=== PATIENT | female | born 1945 | race Caucasian/White ===

== ENCOUNTER 2021-03-28 18:59 | Emergency (ER) | payer MEDICARE, BC, SELFPAY ==
--- NOTE | ~2021-03-28 | XR_ITS ---
EXAMINATION: XR humerus RT, XR ribs RT 2V DATE: 03/28/2021 19:28 INDICATION: Right rib and upper arm pain post fall TECHNIQUE: 1. 3 views of the right ribs were obtained. 2. AP and lateral views of the right humerus were obtained. COMPARISON: None FINDINGS: Right ribs: No rib fractures identified. The right lung and visualized portions of the left lung are clear. No pu lmonary edema, pleural effusion or pneumothorax. Visualized portions of the heart and mediastinum are normal. Cholecystectomy clips in right upper quadrant. Mild lumbar levoscoliosis with severe spondyl osis. Right upper arm: Anterior dislocation of the right humeral head at the glenohumeral joint. No evident fracture. Mild a cromioclavicular osteoarthritis. Subacromial spurs. No other fractures identified. IMPRESSION: 1. Right glenohumeral anterior dislocation without evident fracture. 2. No right rib fractures or acute cardiopulmonary disease. Reviewed, dictated and finalized at location A. INERY TEACHER IMPRESSION: 1. Right glenohumeral anterior dislocation without evident fracture. 2. No right rib fractures or acute cardiopulmonary disease.
--- NOTE | ~2021-03-28 | XR_ITS ---
EXAMINATION: XR shoulder RT min 2V DATE: 03/28/2021 20:27 INDICATION: Postreduction right glenohumeral dislocation TECHNIQUE: AP and transscapular Y views of the right shoulder were obtained. COMPARISON: 03/28/2021 at 7:23 PM FINDINGS: Successful reduction of the previously dislocated right glenohumeral joint is now in normal alignment . No fractures identified. Mild right acromioclavicular and glenohumeral osteoarthritis. Visualized p ortions of the right lung are clear. Soft tissues are unremarkable. IMPRESSION: Anatomic alignment post successful reduction of dislocated right glenohumeral joint. No evident fract ure. Reviewed, dictated and finalized at location A. N FARMER IMPRESSION: Anatomic alignment post successful reduction of dislocated right glenohumeral j oint. No evident fracture.
[2021-03-28 19:07] VITALS: BP 151/69; PULSE 56; RESP 17; TEMP 36.3; O2SAT 100
--- NOTE | 2021-03-28 20:17 | ED.UPPEXIN ---
HPI - Extremity Injury (Upper) General Chief Complaint: Extremity Injury, Upper Stated Complaint: fall- right arm and shoulder pain Time Seen by Provider: 03/28/21 20:09 Source: patient History of Present Illness HPI narrative: Patient presents with right shoulder pain. Patient reports she was at home tripped over a heavy object in her house and fell on extended right arm. She had immediate right shoulder pain she was concerned for her shoulder injury so she came to the ER for evaluation. She denies use of blood thinners she denied striking her head she denies any loss of consciousness she denies any other focal areas of pain. Patient reports when she got to her ER room her shoulder felt much improved. She reports when she is in the waiting she been unable to move her shoulder but now is able to move her shoulder freely without pain. She denies any focal numbness or weakness she denies any headaches. She denies any prodrome prior to the fall Related Data Home Medications Medication Instructions Recorded Confirmed acetaminophen 650 mg 650 mg PO Q12H 03/17/21 03/17/21 tablet,extended release ascorbic acid (vitamin C) 1,000 mg 1 g PO DAILY 03/17/21 03/17/21 tablet cholecalciferol (vitamin D3) 50 50 mcg PO DAILY 03/17/21 03/17/21 mcg (2,000 unit) capsule cranberry 400 mg capsule 400 mg PO DAILY 03/17/21 03/17/21 lactobacillus combination no.9 4 4,000 mmu cells PO DAILY 03/17/21 03/17/21 billion cell capsule losartan 100 1 tablet PO DAILY 03/17/21 03/17/21 mg-hydrochlorothiazide 25 mg tablet metoprolol succinate 100 mg 100 mg PO DAILY 03/17/21 03/17/21 tablet,extended release 24 hr multivitamin 1 tablet PO DAILY 03/17/21 03/17/21 omeprazole 20 mg capsule,delayed 20 mg PO DAILY 03/17/21 03/17/21 release Allergies Allergy/AdvReac Type Severity Reaction Status Date / Time No Known Allergies Allergy Verified 03/28/21 20:33 Review of Systems Review of Systems: CONSTITUTIONAL: Denies fever, chills, or sweats. EYES: Denies visual changes, redness, or discharge. ENT: Denies rhinorrhea, congestion, sore throat, or otalgia. CARDIOVASCULAR: Denies chest pain, palpitations, or edema. RESPIRATORY: Denies cough or dyspnea. GASTROINTESTINAL: Denies abdominal pain, nausea, vomiting, or diarrhea. GENITOURINARY: Denies dysuria or hematuria. SKIN: Denies rash or itching. MUSCULOSKELETAL: Denies back pain, or myalgia. NEUROLOGIC: Denies headache, numbness, dizziness, or weakness. PSYCHIATRIC: Denies anxiety or depression. All systems reviewed & are unremarkable except as noted in HPI and below PMFSH Past Medical History Medical History History of stress test Hypertension Surgical History Surgical History History of cholecystectomy (~1988) History of surgery (~2004) Fibroid Procedure History of tubal ligation (~1969) Family History Family History Mother Arthritis Heart disease Open Heart Surgery @ 88y/p Father Hypertension Social History Social History Smoking status: Never smoker Alcohol intake: current Exam Narrative: GENERAL: Well-appearing, well-nourished, and in no acute distress. HEAD: Normocephalic, atraumatic. EYES: PERRLA and EOMI. ENT: Nares clear, no rhinorrhea or epistaxis. Mucous membranes moist. NECK: Supple. No masses. No JVD EXTREMITIES: Normal range of motion. No shoulder deformity no focal bony tenderness SKIN: Warm, dry, no rash. NEURO: No focal deficits. Alert and oriented x3. PSYCH: Normal mood and affect. Course Vital Signs Vital signs: Vital Signs Temperature 36.3 C L 03/28/21 19:07 Pulse Rate 56 L 03/28/21 19:07 Respiratory Rate 17 03/28/21 19:07 Blood Pressure 151/69 H 03/28/21 19:07 Pulse Oximetry 100 03/28/21 19:07
--- NOTE | 2021-03-28 20:24 | PC.NURSE ---
Pt reports fall and stretched out right arm to land. came to ED c/o pain to right shoulder and inability to move it. Pt inadvertently reduced own shoulder prior to ED room assignment. No current s/s of distress. family at bedside. ED MD in room. sling ordered.
[2021-03-28 20:37] VITALS: BP 150/62; PULSE 60; RESP 18; O2SAT 97
== END 2021-03-28 20:58 | disposition home or self-care (01) ==
LOC: ANHED 20:46
PROVIDERS: Emergency Provider Emergency Medicine; PCP Nurse Practitioner Family
DX: S43.014A Anterior dislocation of right humerus, initial encounter (principal); I10 Essential (primary) hypertension; W18.09XA Striking against other object with subsequent fall, initial encounter
CPT/HCPCS: 71100; 73030; 73060; 99284; A4565

== ENCOUNTER 2021-03-29 09:23 | Emergency (ER) | payer MEDICARE, BC, SELFPAY ==
--- NOTE | ~2021-03-29 | XR_ITS ---
EXAMINATION: XR shoulder RT min 2V DATE: 03/29/2021 09:58 INDICATION: Right shoulder injury. TECHNIQUE: 3 views of right shoulder were obtained. COMPARISON: Right shoulder radiographs 03/28/2021 FINDINGS: There is anterior dislocation of humeral head with respect to glenoid. No acute fracture. A gain seen are loose bodies in glenohumeral joint. There are osteophytes of the humeral head and gleno id. There is moderate acromioclavicular joint osteoarthritis. IMPRESSION: 1. Recurrent anterior right shoulder dislocation. Reviewed, dictated and finalized at location B. HANDISE WORKER
--- NOTE | ~2021-03-29 | XR_ITS ---
EXAMINATION: XR shoulder RT min 2V DATE: 03/29/2021 10:34 INDICATION: Right shoulder dislocation status post reduction. TECHNIQUE: 4 views of right shoulder were obtained. COMPARISON: Right shoulder radiographs at 9:35 AM FINDINGS: Bone alignment is normal. No fracture. There is mild osteoarthritis of glenohumeral joint a nd moderate osteoarthritis of acromioclavicular joint. IMPRESSION: 1. Normal alignment at glenohumeral joint. 2. Polyarticular osteoarthritis. Reviewed, dictated and finalized at location B. R INSPECTOR
[2021-03-29 09:27] VITALS: BP 169/79; PULSE 60; RESP 16; TEMP 36.8; O2SAT 100
--- NOTE | 2021-03-29 10:44 | ED.GENADULT ---
HPI - General Adult General Chief complaint: Extremity Injury, Upper Stated complaint: right shoulder injury Time Seen by Provider: 03/29/21 09:32 Source: patient Mode of arrival: ambulatory Limitations: no limitations History of Present Illness HPI narrative: Patient 75-year-old female presenting with chief complaint of return of pain to the right shoulder that began while she was sleeping. Patient presented to the emergency department yesterday after having a mechanical fall which caused a dislocation to her right shoulder. While patient was waiting her shoulder reduced prior to being seen. She was placed in a sling and discharged home. Patient reports last night while she was sleeping she awoke with the pain in the shoulder that has continued. She reports decreased range of motion. Patient denies any head impact, loss of consciousness, neurologic deficit,, nausea, vomiting, changes in vision or hearing or any other symptoms.. Related Data Home Medications Medication Instructions Recorded Confirmed acetaminophen 650 mg 650 mg PO Q12H 03/17/21 03/17/21 tablet,extended release ascorbic acid (vitamin C) 1,000 mg 1 g PO DAILY 03/17/21 03/17/21 tablet cholecalciferol (vitamin D3) 50 50 mcg PO DAILY 03/17/21 03/17/21 mcg (2,000 unit) capsule cranberry 400 mg capsule 400 mg PO DAILY 03/17/21 03/17/21 lactobacillus combination no.9 4 4,000 mmu cells PO DAILY 03/17/21 03/17/21 billion cell capsule losartan 100 1 tablet PO DAILY 03/17/21 03/17/21 mg-hydrochlorothiazide 25 mg tablet metoprolol succinate 100 mg 100 mg PO DAILY 03/17/21 03/17/21 tablet,extended release 24 hr multivitamin 1 tablet PO DAILY 03/17/21 03/17/21 omeprazole 20 mg capsule,delayed 20 mg PO DAILY 03/17/21 03/17/21 release Allergies Allergy/AdvReac Type Severity Reaction Status Date / Time No Known Allergies Allergy Verified 03/29/21 09:33 Review of Systems Review of Systems: CONSTITUTIONAL: Denies fever, chills, or sweats. EYES: Denies visual changes, redness, or discharge. ENT: Denies rhinorrhea, congestion, sore throat, or otalgia. CARDIOVASCULAR: Denies chest pain, palpitations, or edema. RESPIRATORY: Denies cough or dyspnea. GASTROINTESTINAL: Denies abdominal pain, nausea, vomiting, or diarrhea. GENITOURINARY: Denies dysuria or hematuria. SKIN: Denies rash or itching. MUSCULOSKELETAL: Reports right shoulder pain denies back pain, joint pain, or myalgia. NEUROLOGIC: Denies headache, numbness, dizziness, or weakness. PSYCHIATRIC: Denies anxiety or depression. PMFSH Past Medical History Medical History History of stress test Hypertension Surgical History Surgical History History of cholecystectomy (~1988) History of surgery (~2004) Fibroid Procedure History of tubal ligation (~1969) Family History Family History Mother Arthritis Heart disease Open Heart Surgery @ 88y/p Father Hypertension Social History Social History Smoking status: Never smoker Alcohol intake: current Exam Narrative: GENERAL: Well-appearing, well-nourished, elderly. HEAD: Normocephalic, atraumatic. EYES: PERRLA and EOMI. CHEST: Clear to auscultation. No respiratory distress. No wheezes rales or rhonchi EXTREMITIES: Deformity noted to right shoulder. Decreased range of motion. Sensation and cap refill intact distally. SKIN: Warm, dry, no rash. NEURO: No focal deficits. Alert and oriented x3. PSYCH: Normal mood and affect. Course Vital Signs Vital signs: Vital Signs Temperature 98.3 F 03/29/21 09:27 Pulse Rate 60 03/29/21 09:27 Respiratory Rate 16 03/29/21 09:27 Blood Pressure 169/79 H 03/29/21 09:27 Pulse Oximetry 100 03/29/21 09:27 Temperature 98.3 F 03/29/21 09:27 Pulse Rate 60
== END 2021-03-29 11:05 | disposition home or self-care (01) ==
PROVIDERS: Emergency Provider Emergency Medicine; PCP Nurse Practitioner Family
DX: S43.004A Unspecified dislocation of right shoulder joint, initial encounter (principal); I10 Essential (primary) hypertension; W19.XXXA Unspecified fall, initial encounter
CPT/HCPCS: 23650; 73030; 99285

== ENCOUNTER 2021-05-19 08:33 | Outpatient (CLI) | payer MEDICARE, BC, SELFPAY ==
--- NOTE | 2021-05-19 | ECG_ITS ---
Measurements Intervals [place] Rate: 50 P: 46 CT: 212 QRS: -19 QRSD: 104 T: -4 QT: 462 QTc: 423 Interpretive Statements SINUS BRADYCARDIA WITH FIRST DEGREE AV BLOCK DELAYED PRECORDIAL R/S TRANSITION BORDERLINE T WAVE ABNORMALITY- INFERIOR LEADS ABNORMAL ECG Electronically Signed On 05-19-2021 9:55:58 APARTMENT MAINTENANCE WORKER by Benny Ureña D.O.
[2021-05-19 10:06] LABS: Albumin Level 4.2 g/dL (3.5-5.1); Estimated Glomerular Filt Rate 54; Glucose 103 mg/dL (65-110)
[2021-05-19 10:24] LABS: Urine Cotinine NEGATIVE
== END 2021-05-19 08:34 | disposition home or self-care (01) ==
LOC: ANHLAB 08:43
PROVIDERS: PCP Nurse Practitioner Family; Visit Provider Orthopaedic Surgery
DX: Z01.818 Encounter for other preprocedural examination (principal); M17.12 Unilateral primary osteoarthritis, left knee; E78.5 Hyperlipidemia, unspecified; R94.31 Abnormal electrocardiogram [ECG] [EKG]
CPT/HCPCS: 80307; 82040; 82565; 82947; 85014; 85018; 93005

== ENCOUNTER 2021-07-19 07:45 | Outpatient (CLI) | payer MEDICARE, BC, SELFPAY ==
[2021-07-19 09:28] LABS: Basophils Percent Auto 0.3 % (0.2-1.2); Eosinophils Absolute Auto 0.1 K/mm3 (0-0.3); Eosinophils Percent Auto 0.8 % (0-4.4); Hematocrit 40.5 % (37.0-47.0); Hemoglobin 13.8 g/dL (12.0-15.0); Immature Granulocyte Absolute 0.04 K/mm3 (0.00-0.031); Immature Granulocyte Percent A 0.5 % (0-0.5); Lymphocytes Absolute Auto 2.31 K/mm3 (0.9-3.2); Lymphocytes Percent Auto 26.9 % (18.3-44.2); Mean Corpuscular HGB Conc 34.1 g/dl (32-36); Mean Corpuscular Hemoglobin 31.6 pg (26-34); Mean Corpuscular Volume 92.7 fl (80-100); Mean Platelet Volume 9.3 fl (7.4-10.4); Monocytes Absolute Auto 0.6 K/mm3 (0.1-0.6); Neutrophils Absolute Auto 5.5 K/mm3 (1.3-6.7); Neutrophils Percent Auto 64.5 % (45.5-73.1); Platelet Count Result 314 k/mm3 (150-375); Red Blood Count 4.37 M/mm3 (4.2-5.4); Red Cell Distribution Width 12.7 % (11.5-14.5); White Blood Count 8.6 K/mm3 (4.5-10.0)
[2021-07-19 09:41] LABS: Hemoglobin A1C 5.2 % (<5.7)
[2021-07-19 09:42] LABS: Albumin Level 4.5 g/dL (3.5-5.1); Urine Cotinine NEGATIVE
[2021-07-19 09:44] LABS: Anion Gap 7 mmol/L (8-16); Blood Urea Nitrogen 18 mg/dL (7-17); Calcium 9.4 mg/dL (8.4-10.2); Carbon Dioxide 31 mmol/L (22-30); Chloride 100 mmol/L (98-107); Estimated Glomerular Filt Rate > 60; Glucose 106 mg/dL (65-110); Potassium 3.9 mmol/L (3.4-5.0); Sodium 138 mmol/L (137-145)
== END 2021-07-19 07:46 | disposition home or self-care (01) ==
LOC: ANHSURGERY 07:50
PROVIDERS: Anesthesiology; PCP Nurse Practitioner Family; Visit Provider Orthopaedic Surgery
DX: M17.12 Unilateral primary osteoarthritis, left knee (principal); I10 Essential (primary) hypertension; Z01.818 Encounter for other preprocedural examination
CPT/HCPCS: 36415; 80048; 80307; 82040; 83036; 85025; 87081

== ENCOUNTER 2021-08-19 00:58 | Day surgery (SDC) | payer MEDICARE, BC, SELFPAY ==
--- NOTE | 2021-07-19 08:29 | PC.NURSE ---
Report to the Outpatient Waiting Room, entrance under the green pavilion located off [facility], at time __0600 on date _08/19/21 . OR Time: . - You and your visitor will be asked a series of questions to screen for COVID 19 for your protection. - A mask is required within the hospital. Preoperative COVID Testing Requirements: No COVID Test needed if: (proof is required; if not received patient will have Rapid Test prior to entry) - Patient has received COVID Vaccine at least 14 days prior to procedure date or - Patient has positive COVID test result within last 90 days of surgery date. COVID Test needed if above criteria is not met If not COVID vaccinated a COVID test must be conducted within 72 hours of surgery and patient is asked to isolate self from time of testing until procedure. You will go to the [facility] for your COVID testing. The [facility] site is located at the corner of [address] [facility]. You will only be called if COVID results are positive and your surgeon may reschedule your elective surgery date. Patients may have clear liquids (water, carbonated beverages, clear teas, apple juice) until 3 hours prior to surgery with a maximum of 20 ounces. - No food from midnight until time of surgery - Infants may have breast milk until 4 hours before surgery, infant formula 6 hours prior to surgery. - Children will be allowed to drink immediately following surgery. If applicable, please bring a bottle or sippy cup to assist with drinking. Juice, water, soda, and popsicles are readily available. For infants on formula, please bring formula the day of surgery. Pacifiers are allowed. Take the following medications with a SIP of water the morning of surgery: ____METOPROLOL Medications to discontinue per physician __ALL VITAMINS AND SUPPLEMENTS 3 DAYS PRE OP Date to take last dose___08/15/21 TOTAL JOINT CLASS 07/21/21 Please no make-up, nail arabic, hairspray, perfume, deodorant, or body powder the day of surgery. No jewelry (including any body piercings) or valuables the day of surgery, leave them at home. Please take a shower or bath the night before, or the morning of, surgery with an antibacterial soap. Wear comfortable, loose fitting clothing. Children are encouraged to wear pajamas. - Jewelry must be removed prior to entering the operating room. Rings and piercings that are not removed may be cut off. - The hospital will not accept responsibility for valuables. - Please leave all valuables, including medications, at home the day of surgery. If you are going home after surgery, a licensed cpr ambulance driver must drive you home. - NO public transportation without another adult. - We recommend that an adult stay with you for 24 hours following discharge. - We also recommend that you do not drive, make important decision, drink alcoholic beverages, or take any drugs that were not prescribed by your health care provider for at least 24 hours after your discharge time. One visitor will be allowed to accompany the patient into the hospital. Patients visitor will be instructed to remain with patient at all times or leave the building. We will allow the visitor to come back to the postoperative area when patient is ready. Follow any additional instructions given to you from your surgeon. VERBAL AND WRITTEN instructions given to and asked if any additional questions and then verbalized understanding. Patient advised to call surgeon office or pre surgery nurse liaison [phone] if any additional questions.
[2021-07-19 08:48] VITALS: BP 138/80; PULSE 60; RESP 18; TEMP 37.1; O2SAT 99; BMI 33.6
[2021-08-19] VITALS (16 sets, daily range): BP systolic 103–134; BP diastolic 48–71; PULSE 53–69; RESP 12–20; TEMP 36.2–36.8; O2SAT 92–100
--- NOTE | ~2021-08-19 | XR_ITS ---
EXAMINATION: XR knee LT 2V DATE: 08/19/2021 10:07 INDICATION: Total left knee arthroplasty. Postop. TECHNIQUE: 2 views of left knee were obtained. COMPARISON: Left knee radiographs 03/17/2021 FINDINGS: There is a total left knee arthroplasty without patellar resurfacing in near-anatomic align ment. There are osteophytes of the patella. No fracture. There is a small knee joint effusion. IMPRESSION: 1. Total left knee arthroplasty in near-anatomic alignment. Reviewed, dictated and finalized at location A.
[2021-08-19] MEDS: ACETAMINOPHEN 500 MG TABLET 1000 MG PO (06:59)
[2021-08-19] MEDS: TRANEXAMIC ACID 1,000MG/ISO100 1,000 MG/100 ML BAG 200 MG IVPB (07:00)
--- NOTE | 2021-08-19 07:03 | WPDANESEPPF ---
Anes - Initial Pre Proc Eval Procedure: Operation Date: 08/19/21 07:30 Proposed Procedures p Left Total Knee Arthroplasty - Nando Grant MD Date/Time: 08/19/21 07:03 Surgeon: Nando Grant MD Pre Op Diagnosis: primary OA left knee Patient Data Age: 76 Gender: F Height: 1.47 m Weight: 73 kg Last Vital Signs Temp 37.1 C 07/19/21 08:48 Pulse 60 07/19/21 08:48 Resp 18 07/19/21 08:48 BP 138/80 07/19/21 08:48 Pulse Ox 99 07/19/21 08:48 Allergies Allergy/AdvReac Type Severity Reaction Status Date / Time No Known Allergies Allergy Verified 08/19/21 06:21 Home Medications Medication Instructions Recorded Confirmed Type acetaminophen 650 mg 1,300 mg PO Q12H 03/17/21 08/19/21 History tablet,extended release cholecalciferol (vitamin D3) 50 50 mcg PO DAILY 03/17/21 08/19/21 History mcg (2,000 unit) capsule cranberry 400 mg capsule 400 mg PO DAILY 03/17/21 08/19/21 History lactobacillus combination no.9 4 4,000 mmu cells PO DAILY 03/17/21 08/19/21 History billion cell capsule losartan 100 1 tablet PO DAILY 03/17/21 08/19/21 History mg-hydrochlorothiazide 25 mg tablet metoprolol succinate 100 mg 100 mg PO DAILY 03/17/21 08/19/21 History tablet,extended release 24 hr multivitamin 1 tablet PO DAILY 03/17/21 08/19/21 History omeprazole 20 mg capsule,delayed 20 mg PO DAILY 03/17/21 08/19/21 History release calcium carbonate [Calcium 500] 1,000 mg PO DAILY 07/19/21 08/19/21 History Patient hx anesthesia problems: none Family hx anesthesia problems: post op nausea/vomiting Results Review: All pre-operative results and documents have been reviewed as part of the pre-operative evaluation. ON LICENSE OF [facility] Past Medical History Medical History Arthritis Constipation Depression Diarrhea History of stress test HLD (hyperlipidemia) Hypertension Wears glasses Surgical History Surgical History History of cholecystectomy (~1988) History of surgery (~2004) Fibroid Procedure History of tubal ligation (~1969) Family History Family History Mother Arthritis Heart disease Open Heart Surgery @ 88y/p Father Hypertension Other Depression Social History Social History Additional smoking assessment comments: DENIES ANY FORM OF TOBACCO USE Alcohol intake: current Alcohol use details: ONE DRINK PER MONTH Substance use: never Substance use type: does not use Living arrangements: alone Gender identity (if verbalized by the patient): Female Spiritual care concerns: No Anes - Eval Final PreProcedure Day of Procedure 08/19/21 07:03 Patient weight: obese Heart: regular rate and rhythm Lungs: clear to auscultation Airway: Mallampati scale class II Neurological: alert and oriented Last oral intake: >/= 8 hours ASA classification: III Emergent: no Anesthetic plan: proceed Anesthesia type and monitoring: general LMA and standard monitoring Results Review: All pre-operative results and documents have been reviewed as part of the pre-operative evaluation. Informed Consent: The patient's anesthetic plan and its attendant risks and benefits were discussed with the patient/family/POA. Questions were solicited and answers provided to the satisfaction of the patient/family/POA.
[2021-08-19] MEDS: LACTATED RINGERS 1,000 ML 30 ML IV CONT (07:11)
--- NOTE | 2021-08-19 07:23 | PM.HPGS ---
History of Present Illness History of Present Illness Consent: Risks, benefits, and alternatives have been discussed and questions answered. Patient agrees to proceed with procedure. Chief complaint: primary OA left knee Narrative: Mara Romero is a 76 year old female who presents with bilateral knee pain. Left is worse than right. Pain has been ongoing for many years. Worse with lifting and prolonged walking. Unable to walk more than 2 blocks without pain. She has to use Biofreeze on the knees in order to go shopping comfortably. Audible popping and crunching. Ambulates with a limp. Previous Treatment: Tylenol arthritis medication with minimal benefit. Review of systems: unremarkable Examination Alert and oriented. Obese. No distress. Significant limp. Varus deformity, mild left and 20 degrees left. Medial pseudolaxity. Trace effusion. Mild synovitis. Diffuse joint line tenderness. No instability. No skin rash or lesion. No varicosities. No edema. Anterior tibialis strength normal. Range of motion: 0-110 Left, 0-135 Right. Hip exam benign. Diagnostics Bilateral knee films demonstrate severe tricompartmental arthritis. Worse in the medial compartment with grade 4 changes. Impression: Severe varus arthritis bilateral knees. Left worse than right. The left has more significant medial tibial erosion. Severe tricompartmental changes and osteophytes. [facility] Past Medical History Medical History Arthritis Constipation Depression Diarrhea History of stress test HLD (hyperlipidemia) Hypertension Wears glasses Surgical History Surgical History History of cholecystectomy (~1988) History of surgery (~2004) Fibroid Procedure History of tubal ligation (~1969) Family History Family History Mother Arthritis Heart disease Open Heart Surgery @ 88y/p Father Hypertension Other Depression Social History Social History Additional smoking assessment comments: DENIES ANY FORM OF TOBACCO USE Alcohol intake: current Alcohol use details: ONE DRINK PER MONTH Substance use: never Substance use type: does not use Living arrangements: alone Gender identity (if verbalized by the patient): Female Spiritual care concerns: No Meds Home Medications and Allergies Home Medications Medication Instructions Recorded Confirmed Type acetaminophen 650 mg 1,300 mg PO Q12H 03/17/21 08/19/21 History tablet,extended release cholecalciferol (vitamin D3) 50 50 mcg PO DAILY 03/17/21 08/19/21 History mcg (2,000 unit) capsule cranberry 400 mg capsule 400 mg PO DAILY 03/17/21 08/19/21 History lactobacillus combination no.9 4 4,000 mmu cells PO DAILY 03/17/21 08/19/21 History billion cell capsule losartan 100 1 tablet PO DAILY 03/17/21 08/19/21 History mg-hydrochlorothiazide 25 mg tablet metoprolol succinate 100 mg 100 mg PO DAILY 03/17/21 08/19/21 History tablet,extended release 24 hr multivitamin 1 tablet PO DAILY 03/17/21 08/19/21 History omeprazole 20 mg capsule,delayed 20 mg PO DAILY 03/17/21 08/19/21 History release calcium carbonate [Calcium 500] 1,000 mg PO DAILY 07/19/21 08/19/21 History Allergies Allergy/AdvReac Type Severity Reaction Status Date / Time No Known Allergies Allergy Verified 08/19/21 06:21 Assessment and Plan Assessment and plan (1) Arthritis of left knee: Code(s): M17.12 - Unilateral primary osteoarthritis, left knee Status: Acute Assessment and Plan: End-stage arthritis left knee. Significant medial tibial erosion on the left with instability and pain limiting her quality of life. I recommend left total knee arthroplasty. Surgery more complex due to the bone loss and instability pattern. L
--- NOTE | 2021-08-19 07:26 | WPDHPUPDATE1 ---
History and Physical Update Update Date/Time: 08/19/21 07:26 History and Physical has been reviewed, including an updated exam of the patient. There are NO changes in the patient's condition. Risks, benefits, and alternatives have been discussed and questions answered. Patient agrees to proceed with procedure.
--- NOTE | 2021-08-19 07:27 | WPDANESPNB ---
Anes - Peripheral Nerve Block Date/Time: 08/19/21 07:27 I have discussed with the patient/family/POA the placement of a peripheral nerve block for post-operative pain management, including associated risks, benefits, complications, and side effects. Alternative methods of post-operative analgesia were detailed. Questions were solicited and answers provided to the satisfaction of the patient/family/POA. Time-Out: A pre-procedural Time-Out was completed immediately before starting the procedure and confirmed: Patient Identification, Site, Procedure, Patient Position and the Availability of Requisite Equipment. Clinical Indications: Acute post-operative pain management requested by the operative surgeon. Nerve Block Insertion Note Anes-nerve block: adductor canal left Patient position: supine Skin prep: chlorhexidine Needle: 22 gauge, stimulating, insulated echogenic needle. Needle length: 80 mm Technique: ultrasound Technique comment: mid 2mg [id number] Injectate: bupivacaine 0.5% with epi 5 mcg/ml (30ml) Observations: tolerated well Complications: none Procedure start time:: 719 Procedure end time:: 725
[2021-08-19] MEDS: ceFAZolin 2 GM/D5W 50 ML 2 GM/50 ML BAG IVPB ×2 (07:28→16:38)
[2021-08-19] MEDS: GENTAMICIN BONE CEMENT REFOBACIN 1 EACH TOPICAL (08:17)
--- NOTE | 2021-08-19 11:30 | ADMGEN ---
This patient, Mara Romero, was admitted to Medical Room 241-. Patient/family oriented to hospital policies and general routines including ID bracelet, bed and alarms, visiting hours, pain management, procedures, bathroom and other care routines, personal items, smoking policy, room service/diet, and visiting hours. Information on how to activate the Rapid Response Team has been discussed. Patient/Family are encouraged to report perceived risks to care and to ask questions if they do not understand what they are told or what they should do.
[2021-08-19] MEDS: SODIUM CHLORIDE 0.9% IV 1,000 ML 125 ML IV CONT (11:49)
[2021-08-19] MEDS: hydroCHLOROthiazide 25 MG TABLET PO (12:29)
[2021-08-19] MEDS: LOSARTAN POTASSIUM 100 MG TABLET PO (12:29)
[2021-08-19] MEDS: ONDANSETRON INJ 4 MG/2 ML VIAL IV PUSH (13:17)
--- NOTE | 2021-08-19 16:03 | P.OP_ITS ---
Procedure Note - Detailed Date of Procedure 08/19/21 Pre-op Diagnosis primary OA left knee Post-op Diagnosis Same Procedure Performed Total knee arthroplasty, left. Surgeon Nando Grant MD Heel Attacher Wood Viridiana Sloan PA-C Anesthesia General and Regional (Subsartorial block.) Findings Severe end-stage arthritis with medial tibial erosion. Significant medial release was required. Patella tracked well with minimal wear. Description of Procedure The patient was brought to the operating room. A general anesthetic was administered. The leg was prepped and draped in the usual sterile fashion. The limb was elevated and the tourniquet inflated to 300 mmHg. A longitudinal incision was created along the medial border of the patella and patellar tendon, and a minimally invasive optimized mid-vastus approach to the knee was performed. A large medial release was taken. The knee was then flexed. The osteophytes were carefully removed. The intramedullary guide was placed in the femoral canal. The distal femoral resection was then taken with the oscillating saw. The collateral ligaments were carefully protected. The tibia was carefully exposed. The jig was applied, and the proximal tibia was resected according to preoperative plan. The knee was balanced in extension. Appropriate releases were taken where needed. The anterior cruciate ligament and meniscal remnants were removed. The posterior cruciate ligament was sacrificed. The patella was trimmed of osteophytes with coagulation of the lateral retinaculum. The femur was sized and rotation assessed using a combination of gap balancing, posterior referencing, and the AP axis. The 4 in 1 cutting block and the box cut guide were used to finish the femoral cuts after equal gaps were assured. The osteophytes were carefully removed from the back of the knee. The knee was copiously irrigated with antibiotic solution periodically throughout the procedure. The meniscal remnants were removed. The spacer block was used to confirm equal flexion and extension gaps. Further releases were performed as needed. The tibia was sized and broached. The bony surfaces were prepared for cementing with pulsatile lavage. The real tibial and femoral components were victor manuel ented into position. Excess cement was carefully removed. Patellar tracking was carefully assessed. No additional releases were required. Dilute sterile Betadine soak performed for three minutes. Copious irrigation then performed. The wound was closed with #1 Vycril suture, #2 Quill suture, 0-Quill suture, and 2-0 Quill suture followed by Steri-Strips. A sterile bulky dressing was applied. Meticulous hemostasis was maintained throughout the procedure. The pain relieving mixture was injected into the periarticular tissues during the procedure. There were no complications. The patient was extubated and brought to the recovery room in stable condition after the application of sterile dressing with Go bandage. Implants [employer] triathlon knee system universal tibial cemented base plate posterior stabilized femoral component. Both size 4. 16 mm N2 VAC polyethylene. Estimated Blood Loss -100.0 Drains No Complications No immediate complications Condition Stable Disposition PACU
--- NOTE | 2021-08-19 16:09 | PM.DS ---
DS: Admitting Diagnosis Discharge Date 08/20/21 Admitting Diagnosis OA knee Left DS: Discharge Diagnosis Discharge Diagnosis (1) Status post total left knee replacement: Code(s): Z96.652 - Presence of left artificial knee joint Status: Acute Assessment and Plan: Postop day 1: Left total knee arthroplasty. Patient tolerated procedure well. No complications. Did have some nausea and vomiting witch improved with medications. Pain manageable with pain medication. No numbness or tingling. We had a lengthy discussion regarding postoperative wound care, limitations, expectations, and exercises. Patient shows good understanding. He has had initial physical therapy and is tolerating it well. DVT prophylaxis: 81 mg baby aspirin b.i.d. for 14 days. Pain medication: Percocet. Meloxicam. Prednisone. Patient has followup appointment with Dr. Grant in 3 weeks. DS: Summary Hospital Course Reason for hospitalization: Total knee arthroplasty Hospital Course: Patient tolerated procedure well. Has had initial PT/OT. Status at Discharge Functional status at discharge: uses cane/walker Overall status at discharge: patient is progressing back to baseline Time Spent with Patient Time attestation: Total time spent providing and/or coordinating discharge services: Exam Narrative: Overweight 76 y/o female. Resting comfortably in bed. Wearing compression socks bilaterally. Dressing intact with no drainage. Moderate swelling. Small area of ecchymosis. No erythema. No hematoma. Range of motion limited due to pain. Calf nontender. Neurologic status intact. No varicosities. Distal pulses palpable. DS: Data Data Completed and Pending Labs on day of discharge: Labs from last 24 hours 08/19/21 06:48 Blood Type A Positive Antibody Screen Negative Discharge Plan Discharge Patient Disposition: Home, Self-Care Discharge Instructions: See green instruction sheets. Stand Alone Forms: General Discharge Instructions Follow-up/Referrals: Viridiana Sloan PA [Physician Retail Event Coordinator] - Discharge Medications: New meloxicam 15 mg tablet 15 mg PO DAILY Qty: 30 RF: 0 prednisone 5 mg tablet 5 mg PO DAILY 21 Days Qty: 21 RF: 0 aspirin 81 mg tablet,delayed release (DR/EC) 81 mg PO BID 14 Days Qty: 28 RF: 0 oxycodone-acetaminophen 5-325 mg tablet 1 - 2 tablet PO Q4-6H MDD 6 PRN (Reason: pain) Qty: 30 RF: 0 Continued metoprolol succinate [Toprol XL] 100 mg tablet extended release 24 hr 100 mg PO DAILY RF: 0 losartan-hydrochlorothiazide 100-25 mg tablet 1 tablet PO DAILY RF: 0 omeprazole 20 mg capsule,delayed release(DR/EC) 20 mg PO DAILY RF: 0 acetaminophen [Tylenol Arthritis Pain] 650 mg tablet extended release 1,300 mg PO Q12H RF: 0 multivitamin Tablet 1 tablet PO DAILY RF: 0 Adult 50 Plus Probiotic 4 billion cell capsule 4,000 mmu cells PO DAILY RF: 0 cranberry 400 mg capsule 400 mg PO DAILY RF: 0 cholecalciferol (vitamin D3) 50 mcg (2,000 unit) capsule 50 mcg PO DAILY RF: 0 calcium carbonate 500 mg calcium (1,250 mg) Tablet 1,000 mg PO DAILY RF: 0
[2021-08-19] MEDS: SENNA/DOCUSATE SODIUM TABLET 2 TAB PO (16:38)
[2021-08-19] MEDS: ASPIRIN 81 MG ENTERIC TABLET PO (16:38)
[2021-08-20] VITALS (7 sets, daily range): BP systolic 106–112; BP diastolic 47–59; PULSE 53–68; RESP 12–18; TEMP 36.4–36.8; O2SAT 94–100
[2021-08-20] MEDS: ceFAZolin 2 GM/D5W 50 ML 2 GM/50 ML BAG IVPB ×2 (00:11→08:29)
[2021-08-20] MEDS: polyethylene glycoL 3350 17 GM POWD.PACK PO (08:32)
[2021-08-20] MEDS: hydroCHLOROthiazide 25 MG TABLET PO (08:35)
[2021-08-20] MEDS: METOPROLOL SUCCINATE EXT REL 100 MG TABCR PO (08:36)
[2021-08-20] MEDS: PANTOPRAZOLE 40 MG TABLET PO (08:38)
[2021-08-20] MEDS: MELOXICAM 7.5 MG TABLET PO (08:39)
[2021-08-20] MEDS: ASPIRIN 81 MG ENTERIC TABLET PO (08:39)
[2021-08-20] MEDS: LOSARTAN POTASSIUM 100 MG TABLET PO (09:40)
--- NOTE | 2021-08-20 12:11 | PC.NURSE ---
On 08/20/21, the student, [Sumeet Villatoro], provided care and completed enosiX documentation on this patient. I have reviewed the student's documentation and agree with the findings.
== END 2021-08-20 12:30 | disposition home or self-care (01) ==
LOC: ANHSURGERY 11:14 → ANH2MED 11:16
PROVIDERS: PCP Nurse Practitioner Family; Visit Provider Orthopaedic Surgery
PROC: (CPT 27447; principal; 2021-08-19 07:30)
DX: M17.12 Unilateral primary osteoarthritis, left knee (principal); M25.562 Pain in left knee; G89.18 Other acute postprocedural pain; M65.862 Other synovitis and tenosynovitis, left lower leg; E66.9 Obesity, unspecified; Z68.32 Body mass index [BMI] 32.0-32.9, adult; M19.90 Unspecified osteoarthritis, unspecified site; F32.9 Major depressive disorder, single episode, unspecified; E78.5 Hyperlipidemia, unspecified; I10 Essential (primary) hypertension; Z90.49 Acquired absence of other specified parts of digestive tract
CPT/HCPCS: 27447; 64447; 36415; 73560; 86850; 86900; 86901; 97110; 97116; 97161; 97165; 97535; A9270; C1713; C1776; J0131; J0171; J0690; J1100; J1885; J2250; J2270; J2405; J2704; J2795; J3010; J7030; J7120

== ENCOUNTER 2021-10-13 09:24 | Outpatient (CLI) | payer MEDICARE, BC, SELFPAY ==
[2021-10-13 09:59] LABS: Albumin Level 4.4 g/dL (3.5-5.1); Estimated Glomerular Filt Rate 54; Glucose 107 mg/dL (65-110)
[2021-10-13 12:29] LABS: Hematocrit 39.5 % (37.0-47.0)
== END 2021-10-13 09:25 | disposition home or self-care (01) ==
LOC: ANHLAB 09:31
PROVIDERS: PCP Nurse Practitioner Family; Visit Provider Orthopaedic Surgery
DX: Z01.818 Encounter for other preprocedural examination (principal); M17.11 Unilateral primary osteoarthritis, right knee; E78.5 Hyperlipidemia, unspecified; I10 Essential (primary) hypertension
CPT/HCPCS: 36415; 82040; 82565; 82947; 85014; 85018

== ENCOUNTER 2021-11-29 09:48 | Outpatient (CLI) | payer MEDICARE, BC, SELFPAY ==
[2021-11-29 11:02] LABS: Basophils Absolute Auto 0.1 K/mm3 (0.0-0.1); Basophils Percent Auto 0.5 % (0.2-1.2); Eosinophils Absolute Auto 0.1 K/mm3 (0-0.3); Eosinophils Percent Auto 1.5 % (0-4.4); Hematocrit 40.8 % (37.0-47.0); Hemoglobin 13.5 g/dL (12.0-15.0); Immature Granulocyte Absolute 0.03 K/mm3 (0.00-0.031); Immature Granulocyte Percent A 0.3 % (0-0.5); Lymphocytes Absolute Auto 2.78 K/mm3 (0.9-3.2); Mean Corpuscular HGB Conc 33.1 g/dl (32-36); Mean Corpuscular Hemoglobin 30.1 pg (26-34); Mean Corpuscular Volume 91.1 fl (80-100); Mean Platelet Volume 9.3 fl (7.4-10.4); Monocytes Absolute Auto 0.7 K/mm3 (0.1-0.6); Neutrophils Absolute Auto 5.9 K/mm3 (1.3-6.7); Neutrophils Percent Auto 61.7 % (45.5-73.1); Platelet Count Result 313 k/mm3 (150-375); Red Blood Count 4.48 M/mm3 (4.2-5.4); Red Cell Distribution Width 12.4 % (11.5-14.5); White Blood Count 9.6 K/mm3 (4.5-10.0)
[2021-11-29 11:08] LABS: Albumin Level 4.5 g/dL (3.5-5.1)
[2021-11-29 11:10] LABS: Anion Gap 10 mmol/L (8-16); Blood Urea Nitrogen 29 mg/dL (7-17); Calcium 9.6 mg/dL (8.4-10.2); Carbon Dioxide 29 mmol/L (22-30); Chloride 99 mmol/L (98-107); Estimated Glomerular Filt Rate > 60; Glucose 97 mg/dL (65-110); Sodium 138 mmol/L (137-145)
[2021-11-29 11:25] LABS: Urine Cotinine NEGATIVE
[2021-11-29 11:39] LABS: Hemoglobin A1C 5.4 % (<5.7)
== END 2021-11-29 09:49 | disposition home or self-care (01) ==
PROVIDERS: Anesthesiology; PCP Nurse Practitioner Family; Visit Provider Orthopaedic Surgery
DX: M17.11 Unilateral primary osteoarthritis, right knee (principal); I10 Essential (primary) hypertension; Z01.818 Encounter for other preprocedural examination
CPT/HCPCS: 36415; 80048; 80307; 82040; 83036; 85025; 87081

== ENCOUNTER 2021-12-16 01:39 | Day surgery (SDC) | payer MEDICARE, BC, SELFPAY ==
[2021-11-29 10:00] VITALS: BMI 33.5
--- NOTE | 2021-11-29 10:18 | PC.NURSE ---
Report to the Outpatient Waiting Room, entrance under the green pavilion located off [facility], at time 0600 on date __12/16/21 . OR Time: ___729 . - You and your visitor will be asked a series of questions to screen for COVID 19 for your protection. - Only one visitor is allowed at this time. - The patient visitor is requested to leave or wait in car when not with patient. - A mask is required within the hospital. Patients may have clear liquids (water, carbonated beverages, clear teas, apple juice) until 3 hours prior to surgery with a maximum of 20 ounces. - No food from midnight until time of surgery - Infants may have breast milk until 4 hours before surgery, infant formula 6 hours prior to surgery. - Children will be allowed to drink immediately following surgery. If applicable, please bring a bottle or sippy cup to assist with drinking. Juice, water, soda, and popsicles are readily available. For infants on formula, please bring formula the day of surgery. Pacifiers are allowed. Take the following medications with a SIP of water the morning of surgery: ___METOPROLOL Medications to discontinue per physician ___ALL VITAMINS AND SUPPLEMENTS 3 DAYS PRE OP Date to take last dose___12/12/21 Please no make-up, nail latvian, hairspray, perfume, deodorant, or body powder the day of surgery. No jewelry (including any body piercings) or valuables the day of surgery, leave them at home. Please take a shower or bath the night before, or the morning of, surgery with an antibacterial soap. Wear comfortable, loose fitting clothing. Children are encouraged to wear pajamas. - Jewelry must be removed prior to entering the operating room. Rings and piercings that are not removed may be cut off. - The hospital will not accept responsibility for valuables. - Please leave all valuables, including medications, at home the day of surgery. If you are going home after surgery, a licensed pile driver operator helper must drive you home. - NO public transportation without another adult. - We recommend that an adult stay with you for 24 hours following discharge. - We also recommend that you do not drive, make important decision, drink alcoholic beverages, or take any drugs that were not prescribed by your health care provider for at least 24 hours after your discharge time. For Pediatric surgeries, we recommend two adults accompany the child home (only one inside the building at this time). Follow any additional instructions given to you from your surgeon. If you or anyone in your household have experienced Covid symptoms in the past week, please notify your surgeon or the nurse liaison at the phone number below for possible testing. VERBAL AND WRITTEN instructions given to __PATIENT and asked if any additional questions and then verbalized understanding. Patient advised to call surgeon office or pre surgery nurse liaison [phone] if any additional questions.
[2021-11-29 10:39] VITALS: BP 121/63; PULSE 59; RESP 18; TEMP 36.8; O2SAT 100
[2021-12-16] VITALS (15 sets, daily range): BP systolic 94–124; BP diastolic 48–99; PULSE 51–64; RESP 11–18; TEMP 36.1–36.8; O2SAT 92–100
--- NOTE | ~2021-12-16 | XR_ITS ---
EXAMINATION: XR knee RT 2V DATE: 12/16/2021 09:26 INDICATION: Total right knee arthroplasty. Postop. TECHNIQUE: Right knee radiographs 11/29/2021 were obtained. COMPARISON: None. FINDINGS: There is a total right knee arthroplasty with patellar resurfacing in near-anatomic alignme nt. No fracture. There is gas in the knee joint and soft tissues, consistent with recent surgery. IMPRESSION: 1. Total right knee arthroplasty in near-anatomic alignment. Reviewed, dictated and finalized at location A.
--- NOTE | 2021-12-16 06:47 | WPDANESEPPF ---
Anes - Initial Pre Proc Eval Procedure: Operation Date: 12/16/21 07:30 Proposed Procedures p Right Total Knee Arthroplasty - Nando Grant MD Date/Time: 12/16/21 06:47 Surgeon: Nando Grant MD Pre Op Diagnosis: Prim OA Rt Knee Patient Data Age: 76 Gender: F Height: 1.5 m Weight: 75.2 kg Last Vital Signs Temp 36.8 C 11/29/21 10:39 Pulse 59 L 11/29/21 10:39 Resp 18 11/29/21 10:39 BP 121/63 11/29/21 10:39 Pulse Ox 100 11/29/21 10:39 O2 Del Method Room Air 11/29/21 10:39 Allergies Allergy/AdvReac Type Severity Reaction Status Date / Time No Known Allergies Allergy Verified 11/29/21 10:00 Home Medications Medication Instructions Recorded Confirmed Type acetaminophen 650 mg 1,300 mg PO Q12H 03/17/21 11/29/21 History tablet,extended release (Tylenol Arthritis Pain) cholecalciferol (vitamin D3) 50 50 mcg PO DAILY 03/17/21 11/29/21 History mcg (2,000 unit) capsule cranberry 400 mg capsule 400 mg PO DAILY 03/17/21 11/29/21 History lactobacillus combination no.9 4 4,000 mmu cells PO DAILY 03/17/21 11/29/21 History billion cell capsule (Adult 50 Plus Probiotic) losartan 100 1 tablet PO DAILY 03/17/21 11/29/21 History mg-hydrochlorothiazide 25 mg tablet metoprolol succinate 100 mg 100 mg PO DAILY 03/17/21 11/29/21 History tablet,extended release 24 hr (Toprol XL) multivitamin 1 tablet PO DAILY 03/17/21 11/29/21 History omeprazole 20 mg capsule,delayed 20 mg PO DAILY 03/17/21 11/29/21 History release ascorbic acid (vitamin C) 500 mg 500 mg PO DAILY 11/29/21 11/29/21 History tablet Patient hx anesthesia problems: post op nausea/vomiting Family hx anesthesia problems: post op nausea/vomiting Results Review: All pre-operative results and documents have been reviewed as part of the pre-operative evaluation. [facility] Past Medical History Medical History Arthritis Constipation Depression Diarrhea History of stress test HLD (hyperlipidemia) Hypertension Wears glasses Surgical History Surgical History History of cholecystectomy (~1988) History of surgery (~2004) Fibroid Procedure History of total left knee replacement (~08/19/21) History of tubal ligation (~1969) Family History Family History Mother Arthritis Heart disease Open Heart Surgery @ 88y/p Father Hypertension Other Depression Social History Social History Smoking status: Unknown if ever smoked Second hand tobacco smoke exposure: No Additional smoking assessment comments: DENIES ANY FORM OF TOBACCO USE Alcohol intake: current Alcohol use details: ONE DRINK PER MONTH Substance use: never Substance use type: does not use Living arrangements: alone Gender identity (if verbalized by the patient): Female Spiritual care concerns: No Anes - Eval Final PreProcedure Day of Procedure 12/16/21 06:47 Patient weight: obese Heart: regular rate and rhythm Lungs: clear to auscultation Airway: Mallampati scale class III Neurological: alert and oriented Last oral intake: >/= 8 hours ASA classification: II Emergent: no Anesthetic plan: proceed Anesthesia type and monitoring: general LMA and standard monitoring Results Review: All pre-operative results and documents have been reviewed as part of the pre-operative evaluation. Informed Consent: The patient's anesthetic plan and its attendant risks and benefits were discussed with the patient/family/POA. Questions were solicited and answers provided to the satisfaction of the patient/family/POA.
[2021-12-16] MEDS: ACETAMINOPHEN 500 MG TABLET 1000 MG PO (06:51)
[2021-12-16] MEDS: LACTATED RINGERS 1,000 ML 30 ML IV CONT ×2 (07:03→09:14)
[2021-12-16] MEDS: TRANEXAMIC ACID 1,000MG/ISO100 1,000 MG/100 ML BAG 200 MG IVPB (07:04)
--- NOTE | 2021-12-16 07:09 | WPDHPUPDATE1 ---
History and Physical Update Update Date/Time: 12/16/21 07:09 History and Physical has been reviewed, including an updated exam of the patient. There are NO changes in the patient's condition. Risks, benefits, and alternatives have been discussed and questions answered. Patient agrees to proceed with procedure.
--- NOTE | 2021-12-16 07:20 | WPDANESPNB ---
Anes - Peripheral Nerve Block Date/Time: 12/16/21 07:20 I have discussed with the patient/family/POA the placement of a peripheral nerve block for post-operative pain management, including associated risks, benefits, complications, and side effects. Alternative methods of post-operative analgesia were detailed. Questions were solicited and answers provided to the satisfaction of the patient/family/POA. Time-Out: A pre-procedural Time-Out was completed immediately before starting the procedure and confirmed: Patient Identification, Site, Procedure, Patient Position and the Availability of Requisite Equipment. Clinical Indications: Acute post-operative pain management requested by the operative surgeon. Nerve Block Insertion Note Anes-nerve block: adductor canal right Patient position: supine Skin prep: chlorhexidine Needle: 22 gauge, stimulating, insulated echogenic needle. Needle length: 80 mm Technique: ultrasound Technique comment: mid1mg [id number] Injectate: bupivacaine 0.5% with epi 5 mcg/ml (30ml no epi) and dexamethasone (mg) (4) Observations: tolerated well Complications: none Procedure start time:: 709 Procedure end time:: 716
[2021-12-16] MEDS: ceFAZolin 2 GM/D5W 50 ML 2 GM/50 ML BAG IVPB ×3 (07:28→23:51)
[2021-12-16] MEDS: GENTAMICIN BONE CEMENT REFOBACIN 1 EACH TOPICAL (09:04)
--- NOTE | 2021-12-16 09:27 | SUR.PHASEI ---
RIGHT KNEE XRAYS DONE
--- NOTE | 2021-12-16 10:20 | ADMGEN ---
This patient, Mara Romero, was admitted to Medical Room 243-01. Patient/family oriented to hospital policies and general routines including ID bracelet, bed and alarms, visiting hours, pain management, procedures, bathroom and other care routines, personal items, smoking policy, room service/diet, and visiting hours. Information on how to activate the Rapid Response Team has been discussed. Patient/Family are encouraged to report perceived risks to care and to ask questions if they do not understand what they are told or what they should do.
[2021-12-16] MEDS: ONDANSETRON INJ 4 MG/2 ML VIAL IV PUSH (12:31)
[2021-12-16] MEDS: SODIUM CHLORIDE 0.9% IV 1,000 ML 125 ML IV CONT (12:31)
--- NOTE | 2021-12-16 14:06 | PCPTNOTE ---
Attempted physical therapy initial evaluation, pt declined at this time stating she is still feeling very nauseous after occupational therapy this morning. Will continue to follow.
--- NOTE | 2021-12-16 16:16 | P.OP_ITS ---
Procedure Note - Detailed Date of Procedure 12/16/21 Pre-op Diagnosis Prim OA Rt Knee Post-op Diagnosis Same Procedure Performed Total knee arthroplasty, right Surgeon Nando Grant MD Fancy Stitcher Viridiana Sloan PA-C Anesthesia General and Regional (subsartorial block) Description of Procedure The patient was brought to the operating room. A general anesthetic was administered. The leg was prepped and draped in the usual sterile fashion. The limb was elevated and the tourniquet inflated to 300 mmHg during initial exposure, and cementation. A longitudinal incision was created along the medial border of the patella and patellar tendon, and a trivector approach to the knee was performed. A mild medial release was taken. The knee was then flexed. The osteophytes were carefully removed. The intramedullary guide was placed in the femoral canal. The distal femoral resection was then taken with the oscillating saw. The collateral ligaments were carefully protected. The tibia was carefully exposed. The jig was applied, and the proximal tibia was resected according to preoperative plan. The knee was balanced in extension. Appropriate releases were taken where needed. The anterior cruciate ligament and meniscal remnants were removed. The posterior cruciate ligament was preserved. The patella was measured. Patellar resection was carried out with the oscillating saw. The lug holes drilled. The femur was sized and rotation assessed using a combination of gap balancing, posterior referencing, and the AP axis. The 4 in 1 cutting block was used to finish the femoral cuts after equal gaps were assured. The osteophytes were carefully removed from the back of the knee. The knee was copiously irrigated with antibiotic solution periodically throughout the procedure. The meniscal remnants were removed. The spacer block was used to confirm equal flexion and extension gaps. No further releases were needed. The tibia was sized and broached. The bony surfaces were prepared for cementing with pulsatile lavage. The real tibial and femoral and patellar components were cemented into position. Excess cement was carefully removed. Patellar tracking was carefully assessed. No additional releases were required. Dilute sterile Betadine soak performed for three minutes. Copious irrigation then performed. The wound was closed with #1 Vicryl suture, #2, 2-0, and 3-0 barbed suture, followed by Steri-Strips. A sterile bulky dressing was applied. Meticulous hemostasis was maintained throughout the procedure. The bipolar cautery device was used. The pain relieving mixture was injected into the periarticular tissues during the procedure. There were no complications. The patient was extubated and brought to the recovery room in stable condition after the application of sterile dressing with Go bandage. Physician assistant superintendent for curriculum, Viridiana Sloan PA-C, required for surgery; including patient positioning, draping, tissue retraction, maintaining instrument position, cement removal, wound closure, and dressing placement. [employer] Triathlon knee system, low profile cemented tibia size 4, cemented cruciate retaining femoral component size 3 ,and an 9 mm cruciate retaining polyethylene insert. 32mm asymmetric all polyethylene patella component. Estimated Blood Loss -50.0 Drains No Pathology None sent Complications No immediate complications Condition Stable Disposition PACU [facility] Billing Surgery - Charge Forward: Surgery Billing
--- NOTE | 2021-12-16 16:49 | PM.PNORT ---
Progress Note: A&P Assessment and Plan (1) Orthopedic aftercare for joint replacement: Code(s): Z47.1 - Aftercare following joint replacement surgery Status: Acute Assessment and Plan: Postop right total knee arthroplasty today. Complains of nausea. Examination Alert oriented x3. Comfortable. Dressing intact. Good quad refer function. Wiggles toes. Diagnostics Postoperative x-rays show good implant alignment. Impression Postop nausea. Pain well controlled. Therapy tomorrow. Subjective Subjective Date/Time Seen: 12/16/21 16:49 Objective Data Vital Signs Vital Signs: Vital Signs - 24 hr 12/16/21 07:00 12/16/21 09:14 12/16/21 09:25 Temperature 36.6 C 36.8 C Pulse Rate 51 L 64 62 Respiratory Rate 16 12 12 Blood Pressure 121/55 L 117/59 L 120/99 H Pulse Oximetry 99 99 100 Oxygen Delivery Room Air Simple Face Mask Simple Face Mask Oxygen Flow Rate 8 8 12/16/21 09:40 12/16/21 09:55 12/16/21 10:10 Temperature Pulse Rate 62 60 58 L Respiratory Rate 14 11 L 13 Blood Pressure 114/73 94/58 L 117/63 Pulse Oximetry 100 98 100 Oxygen Delivery Simple Face Mask Room Air Nasal Cannula Oxygen Flow Rate 8 2 12/16/21 10:20 12/16/21 10:35 12/16/21 10:30 Temperature 36.1 C L 36.2 C L Pulse Rate 58 L 56 L Respiratory Rate 18 18 18 Blood Pressure 114/56 L 111/59 L Pulse Oximetry 96 96 96 Oxygen Delivery Nasal Cannula Oxygen Flow Rate 2 12/16/21 11:05 12/16/21 12:00 12/16/21 16:10 Temperature 36.1 C L 36.3 C L 36.6 C Pulse Rate 57 L 57 L 58 L Respiratory Rate 16 18 18 Blood Pressure 124/76 121/65 116/62 Pulse Oximetry 99 97 97 Oxygen Delivery Oxygen Flow Rate Intake/Output Intake/Output: Intake & Output 12/13/21 12/14/21 12/15/21 12/16/21 23:59 23:59 23:59 23:59 Intake Total 250 Balance 250 Meds/Results Medications: Active Medications Generic Name Dose Route Start Last Admin Trade Name Freq PRN Reason Stop Dose Admin Acetaminophen 1,000 mg 12/17/21 06:00 Acetaminophen 500 Mg Tablet PO Q6H PRN Pain Rated 1-3 Aspirin 81 mg 12/16/21 17:00 Aspirin 81 Mg Enteric Tablet PO BID SOHAM Cyclobenzaprine HCl 10 mg 12/16/21 10:15 Cyclobenzaprine Hcl 10 Mg Tablet PO Q8H PRN Spasms Diphenhydramine HCl 25 mg 12/16/21 10:15 Diphenhydramine Hcl Inj 50 Mg/Ml Vial IV PUSH Q6H PRN Itching Hydrochlorothiazide 25 mg 12/17/21 09:00 Hydrochlorothiazide 25 Mg Tablet PO DAILY SOHAM Sodium Chloride 1,000 mls @ 125 mls/hr 12/16/21 10:15 12/16/21 15:03 Normal Saline Iv IV CONT 12/16/21 18:14 0 mls/hr .Q8H SOHAM Infusion Cefazolin Sodium 2 gm in 50 mls @ 100 mls/hr 12/16/21 15:00 12/16/21 15:03 Ancef 2 Gm/D5w 50 Ml IVPB 12/17/21 07:29 100 mls/hr Q8H SOHAM Administration Acetaminophen 1,000 mg in 100 mls @ 400 mls/hr 12/16/21 12:00 12/16/21 11:40 Ofirmev 1,000 Mg Ivpb IVPB 12/17/21 00:14 Infused Q6HR SOHAM Infusion Losartan Potassium 100 mg 12/17/21 09:00 Losartan Potassium 100 Mg Tablet PO DAILY [facility] Meloxicam 7.5 mg 12/16/21 17:00 Meloxicam 7.5 Mg Tablet PO BID [facility] Metoprolol Succinate 100 mg 12/17/21 09:00 Metoprolol Succinate Ext Rel 100 Mg Tabcr PO DAILY [facility] Naloxone HCl 0.1 mg 12/16/21 10:15 Naloxone Hcl 0.4 Mg/Ml Vial IV PUSH Q2M PRN Opiate Reversal Ondansetron HCl 4 mg 12/16/21 10:15 12/16/21 12:31 Ondansetron Inj 4 Mg/2 Ml Vial IV PUSH 4 mg Q4H PRN Administration Nausea And Vomiting Oxycodone HCl 5 mg 12/16/21 10:15 Oxycodone Hcl (*Crx) 5 Mg Tab Ir PO Q4H PRN Pain Rated 4-6 Oxycodone HCl 10 mg 12/16/21 10:15 Oxycodone Hcl (*Crx) 5 Mg Tab Ir PO Q4H PRN Pain Rated 7-10 Pantoprazole Sodium 40 mg 12/17/21 09:00 Pantoprazole 40 Mg Tablet PO DAILY SOHAM Polyethylene Glycol 17 gm 12/17/21 09:00 Polyethylene Glycol 3350 17 Gm Powd.Pack
[2021-12-16] MEDS: ASPIRIN 81 MG ENTERIC TABLET PO (17:45)
[2021-12-16] MEDS: SENNA/DOCUSATE SODIUM TABLET 2 TAB PO (17:45)
[2021-12-16] MEDS: MELOXICAM 7.5 MG TABLET PO (17:46)
--- NOTE | 2021-12-16 18:30 | WPDCN ---
Assessment and Plan Assessment and plan (1) Arthritis of right knee: Code(s): M17.11 - Unilateral primary osteoarthritis, right knee Status: Acute Assessment and Plan: Postoperative day 0 status post right knee replacement. Wound care, pain control, DVT prophylaxis deferred to Dr. Grant. (2) Postoperative nausea and vomiting: Code(s): R11.2 - Nausea with vomiting, unspecified; Z98.890 - Other specified postprocedural states Status: Acute Assessment and Plan: Continue supportive care including antiemetics and IV fluid rehydration. Symptoms have greatly improved. (3) Hypertension: Code(s): I10 - Essential (primary) hypertension Status: Acute Assessment and Plan: Blood pressures were reviewed and there have been some readings at the low end of normal. Hold losartan-HCTZ tomorrow morning and re-evaluate thereafter. (4) Gastroesophageal reflux disease: Code(s): K21.9 - Gastro-esophageal reflux disease without esophagitis Status: Acute Assessment and Plan: No current issues. Continue omeprazole. Plan Thank you for allowing us to participate in this patient's care. Please do not hesitate to contact us with any questions. Supervising physician for this medical consultation is Dr. Shaunna Esquivel. HPI Data of Consult Date/Time: 12/16/21 18:30 Requesting Physician: Nando Grant MD Consult Narrative Reason for consult: Post-operative medical managment. Narrative: This is a very pleasant 76-year-old female with arthritis, hypertension, hyperlipidemia, and GERD whom the hospitalist service has been consulted for help managing her medical conditions postoperatively. She has had longstanding pain in her right knee not amenable to conservative outpatient treatment and she elected for replacement. Surgery was performed today under general anesthesia with regional block. No immediate complications were noted in estimated blood loss was 50 mL. Postoperatively she did have some nausea and several episodes of emesis but that has since resolved. She slept much of the afternoon and she has not been up and about much. She was able to eat some dinner this evening and she has had no further episodes of vomiting. She has minimal to no pain land she has no other complaints at this time. Specifically she denies fever, chills, sweats, chest pain, and shortness of breath. She also denies paresthesias and skin color or temperature changes distal to the surgical site. On discharge she will return to her home where her daughter will be staying with her for a couple of days. Review of Systems Review of Systems: Twelve systems were reviewed and are negative except for as per HPI. 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 Code status: Full code. Smoking status: Never smoker Second hand tobacco smoke exposure: No Alcohol intake: current Alcohol use details: Perhaps 1 alcoholic beverage a month. Substance use: never Living arrangements: alone Additional ashley
[2021-12-17 03:40] VITALS: BP 103/48; PULSE 60; RESP 18; TEMP 36.3; O2SAT 94
[2021-12-17 05:45] LABS: Hematocrit 33.2 % (37.0-47.0); Hemoglobin 10.8 g/dL (12.0-15.0); Mean Corpuscular HGB Conc 32.5 g/dl (32-36); Mean Corpuscular Hemoglobin 29.9 pg (26-34); Mean Platelet Volume 9.6 fl (7.4-10.4); Platelet Count Result 250 k/mm3 (150-375); Red Blood Count 3.61 M/mm3 (4.2-5.4); Red Cell Distribution Width 12.5 % (11.5-14.5); White Blood Count 14.4 K/mm3 (4.5-10.0)
[2021-12-17 05:56] LABS: Anion Gap 7 mmol/L (8-16); Blood Urea Nitrogen 37 mg/dL (7-17); Calcium 8.3 mg/dL (8.4-10.2); Carbon Dioxide 29 mmol/L (22-30); Chloride 97 mmol/L (98-107); Estimated Glomerular Filt Rate 43; Glucose 106 mg/dL (65-110); Magnesium 1.4 mg/dL (1.6-2.3); Potassium 3.8 mmol/L (3.4-5.0); Sodium 133 mmol/L (137-145)
[2021-12-17] MEDS: ceFAZolin 2 GM/D5W 50 ML 2 GM/50 ML BAG IVPB (06:16)
[2021-12-17 08:00] VITALS: RESP 18; O2SAT 96
[2021-12-17] MEDS: predniSONE 5 MG TABLET PO (08:09)
[2021-12-17] MEDS: ASPIRIN 81 MG ENTERIC TABLET PO (08:09)
[2021-12-17] MEDS: PANTOPRAZOLE 40 MG TABLET PO (08:09)
[2021-12-17 08:10] VITALS: PULSE 66
[2021-12-17] MEDS: METOPROLOL SUCCINATE EXT REL 100 MG TABCR PO (08:10)
[2021-12-17] MEDS: MELOXICAM 7.5 MG TABLET PO (08:12)
[2021-12-17] MEDS: SENNA/DOCUSATE SODIUM TABLET 2 TAB PO (08:12)
[2021-12-17] MEDS: polyethylene glycoL 3350 17 GM POWD.PACK PO (08:13)
[2021-12-17 08:15] VITALS: BP 112/58; PULSE 56; RESP 18; TEMP 36.9; O2SAT 96
--- NOTE | 2021-12-17 08:31 | PM.DS ---
DS: Admitting Diagnosis Discharge Date 12/17/21 Admitting Diagnosis OA knee Right DS: Discharge Diagnosis Discharge Diagnosis Plan Postop day 1: Right total knee arthroplasty. Patient tolerated procedure well. No complications. Pain manageable with pain medication. No numbness or tingling. We had a lengthy discussion regarding postoperative wound care, limitations, expectations, and exercises. Patient shows good understanding. She has had initial physical therapy and is tolerating it well. DVT prophylaxis: 81 mg baby aspirin b.i.d. for 14 days. Compression socks. Short frequent walks. Pain medication: Percocet. Meloxicam. Prednisone. Patient has followup appointment with Dr. Grant in 3 weeks. DS: Summary Hospital Course Reason for hospitalization: Total knee arthroplasty Hospital Course: Patient tolerated procedure well. Has had initial PT/OT. No complications. Pain well managed. Status at Discharge Functional status at discharge: uses cane/walker Overall status at discharge: patient is progressing back to baseline Time Spent with Patient Time attestation: Total time spent providing and/or coordinating discharge services: Exam Narrative: Overweight 76 y/o female. Resting comfortably in chair. No acute distress. A&O x3. Wearing compression socks bilaterally. Dressing intact with no drainage. Moderate swelling. Small area of ecchymosis. No erythema. No hematoma. Good early range of motion. Calf nontender. Neurologic status intact. No varicosities. Distal pulses palpable. DS: Data Data Completed and Pending Labs on day of discharge: Labs from last 24 hours 12/17/21 12/17/21 05:11 05:11 WBC 14.4 H RBC 3.61 L Hgb 10.8 L Hct 33.2 L MCV 92.0 MCH 29.9 MCHC 32.5 RDW 12.5 Plt Count 250 MPV 9.6 Sodium 133 L Potassium 3.8 Chloride 97 L Carbon Dioxide 29 Anion Gap 7 L BUN 37 H Creatinine 1.20 H Estim Creat Clear Calc Not Reportable Estimated GFR 43 L Glucose 106 Calcium 8.3 L Magnesium 1.4 L Discharge Plan Discharge Patient Disposition: Home, Self-Care Discharge Instructions: See green instruction sheets. Stand Alone Forms: General Discharge Instructions Follow-up/Referrals: Viridiana Sloan PA [Physician Song Lyricist] - Discharge Medications: New meloxicam 15 mg tablet 15 mg PO DAILY Qty: 30 0RF Rx Instructions: Cut in half. Take 1/2 in morning and 1/2 at night. Take with food. Stop if stomach upset. prednisone 5 mg tablet 5 mg PO DAILY 21 Days Qty: 21 0RF aspirin 81 mg tablet,delayed release (DR/EC) 81 mg PO BID 14 Days Qty: 28 0RF oxycodone-acetaminophen 5-325 mg tablet 1 - 2 tablet PO Q4-6H MDD 6 PRN (Reason: pain) Qty: 30 0RF Continued metoprolol succinate [Toprol XL] 100 mg tablet extended release 24 hr 100 mg PO DAILY losartan-hydrochlorothiazide 100-25 mg tablet 1 tablet PO DAILY omeprazole 20 mg capsule,delayed release(DR/EC) 20 mg PO DAILY acetaminophen [Tylenol Arthritis Pain] 650 mg tablet extended release 1,300 mg PO Q12H multivitamin Tablet 1 tablet PO DAILY Adult 50 Plus Probiotic 4 billion cell capsule 4,000 mmu cells PO DAILY Rx Instructions: administer with a meal cranberry 400 mg capsule 400 mg PO DAILY Rx Instructions: administer with a meal cholecalciferol (vitamin D3) 50 mcg (2,000 unit) capsule 50 mcg PO DAILY ascorbic acid (vitamin C) 500 mg Tablet 500 mg PO DAILY
--- NOTE | 2021-12-17 11:01 | PM.IMPN ---
Progress Note: A&P Assessment and Plan (1) Arthritis of right knee: Code(s): M17.11 - Unilateral primary osteoarthritis, right knee Status: Acute Assessment and Plan: Postoperative day 1 status post right knee replacement. Wound care, pain control, DVT prophylaxis per Ortho. (2) Postoperative nausea and vomiting: Code(s): R11.2 - Nausea with vomiting, unspecified; Z98.890 - Other specified postprocedural states Status: Acute Assessment and Plan: Resolved. (3) Hypertension: Code(s): I10 - Essential (primary) hypertension Status: Acute Assessment and Plan: Blood pressures were reviewed. BP low normal 112/58. We discussed resuming home medications, staying hydrated postop and monitoring BP. She was counseled on s/s low blood pressure. (4) Gastroesophageal reflux disease: Code(s): K21.9 - Gastro-esophageal reflux disease without esophagitis Status: Acute Assessment and Plan: Continue omeprazole. Stable. Plan Thank you for allowing us to participate in this patient's care. Please do not hesitate to contact us with any questions. Patient is stable for discharge from a medical standpoint. Time Spent With Patient Time with patient: 15 - 25 minutes Subjective Date/time seen: 12/17/21 11:01 Patient is a 76 yo female with history of arthritis, hypertension, GERD and hyperlipidemia. She is POD1 from right TKA. She reports more pain following her right knee surgery than her left. She had some vomiting yesterday, but none today. She is tolerating regular diet and feels like she could have a bowel movement soon. She plans to discharge home and has lots of support. No chest pain, SOB, abd pain, N/V, dysuria or paresthesia. Review of Systems Review of Systems: All systems reviewed & are unremarkable except as noted in HPI and below Exam Narrative: General: No acute distress. Sitting up in the chair. HEENT: Normocephalic. Sclera non-icteric. PERRL. EOMI. Conjunctivae anicteric. Moist mucous membranes. Neck: No JVD. Respiratory: Lungs are clear to auscultation bilaterally. RR unlabored at rest. Cardiovascular: Regular rate and rhythm with S1-S2. No murmur, gallop or rub. Gastrointestinal: Abdomen is soft, nontender, and nondistended with positive bowel sounds. Skin: Warm and dry. No rash or lesions on limited exam. Right knee surgical dressing not visualized. Extremities: No cyanosis, clubbing, or edema. Radial and pedal pulses intact. KARL hose BLE. Intact neurovascular exam. Neurological: Alert. Oriented x4. Speech clear and appropriate. Cranial nerves 2-12 grossly intact. No gross focal deficits to casual conversation. Psychiatric: Pleasant and cooperative with normal mood and affect. Objective Data Vital Signs Vital Signs: Vital Signs - 24 hr 12/16/21 11:05 12/16/21 12:00 12/16/21 16:10 Temperature 97.0 F L 97.4 F L 97.9 F Pulse Rate 57 L 57 L 58 L Respiratory Rate 16 18 18 Blood Pressure 124/76 121/65 116/62 Pulse Oximetry 99 97 97 Oxygen Delivery Oxygen Flow Rate 12/16/21 19:39 12/16/21 20:00 12/16/21 23:59 Temperature 97.1 F L 97.7 F Pulse Rate 56 L 56 L 54 L Respiratory Rate 18 18 18 Blood Pressure 117/50 L 98/48 L Pulse Oximetry 92 92 94 Oxygen Delivery Nasal Cannula Oxygen Flow Rate 2 12/17/21 03:40 12/17/21 08:00 12/17/21 08:10 Temperature 97.4 F L Pulse Rate 60 66 Respiratory Rate 18 18 Blood Pressure 103/48 L Pulse Oximetry 94 96 Oxygen Delivery Room Air Oxygen Flow Rate 12/17/21 08:15 12/17/21 09:36 Temperature 98.4 F Pulse Rate 56 L Respiratory Rate 18 Blood Pressure 112/58 L Pulse Oximetry 96 Oxygen Delivery Room Air Oxygen Flow Rate Intake/Output Intake/Output: Intake & Output 12/14/21 12/15/21 12/16/21 12/17/21 23:59 23:59 23:59 23:59 Intake Total 870 440 Output Total 275 400 Balance 595 40 Meds/Results Me
[2021-12-17] MEDS: oxyCODONE HCL (*CRX) 5 MG TAB IR PO (11:11)
== END 2021-12-17 13:30 | disposition home or self-care (01) ==
LOC: ANHSURGERY 06:08 → ANH2MED 10:25
PROVIDERS: Physician Assistant; PCP Nurse Practitioner Family; Visit Provider Orthopaedic Surgery
PROC: (CPT 27447; principal; 2021-12-16 07:30)
DX: M17.11 Unilateral primary osteoarthritis, right knee (principal); R11.2 Nausea with vomiting, unspecified; G89.18 Other acute postprocedural pain; I10 Essential (primary) hypertension; E78.5 Hyperlipidemia, unspecified; K21.9 Gastro-esophageal reflux disease without esophagitis; E66.9 Obesity, unspecified; Z68.37 Body mass index [BMI] 37.0-37.9, adult
CPT/HCPCS: 27447; 64447; 36415; 73560; 80048; 83735; 85027; 86850; 86900; 86901; 97110; 97161; 97165; 97530; 97535; A9270; C1713; C1776; J0131; J0171; J0690; J1100; J1885; J2250; J2270; J2405; J2704; J2795; J7030; J7120; J7512

== ENCOUNTER 2024-12-03 09:49 | Outpatient (CLI) | payer MEDICARE, BC, SELFPAY ==
--- OUTSIDE RECORDS SUMMARY | 2024-12-03 10:05 | XMS_ITS | Clinical Summary ---
Author Organization [facility] Address [address] [place] [phone] Phone Care Team Providers Care Index Editor Name Role Phone Unavailable Primary Care Provider Unavailabl e Medications aspirin 81 MG chewable tablet 12/30/2011 Act eliel omeprazole (PRILOSEC) [address] capsule 09/10/2014 Activ e omega-3 (FISH OIL) 1000 MG capsule 04/09/2012 Active olmesartan-hydr oCHLOROthiazide (BENICAR HCT) 40-25 MG per tablet 1 daily 5 12/30/2011 Active Probiotic Product (ALIGN) 4 MG capsule 12/30/2011 Active Cranberry (CRANBERRY CONCENTRATE) 500 MG capsule 12/30/2011 Acti ve metoprolol succinate XL (TOPROL XL) 100 MG 24 hr tablet 1 daily 5 12/30/2011 Act eliel Ascorbic Acid (VITAMIN C) 500 MG tablet 12/30/2011 Active cholecalciferol (VITAMIN D-3) 2000 units capsule 1 capsule (2,000 units) orally daily 0 08/26/2015 Active Coenzyme Q10 (COQ10) 100 MG capsule 02/25/2015 Active Active Problems Problem Noted Date Diagnosed Date Other fatigue 08/10/2016 Other hyperlipidemia 02/25/2015 Overview (07/21/2018): Converted unresolved ICD9, potential mismatch. Essential (primary) hypertension 03/12/2014 Chronic kidney disease, stage 3 (moderate) 11/16 Gastro-esophageal reflux disease without esophag itis 11/17/2011 Stiffness of joint 11/17/2011 Family History Medical History Relation Comments Coronary arteriosclerosis Mother Heart disease Mother Relation Status Comments Mother Social History Tobacco Use Types Packs/Day Years Used Date Smoking Tobacco: Never Comments Unknown Sex and Gender Information Value Date Recorded Sex Assigned at Not on file Legal Sex Female 8:33 AM [facility] Gender Identity Not on file Sexual Orientation Not on file Last Filed Vital Signs Vital Sign Reading Time Taken Comments Blood Pressure 116/70 08/10/2016 12:01 AM CDT Pulse 72 08/10/2016 12:01 AM CDT Temperature 35.9 C (96.7 F) 08/10/2016 12:01 AM CDT Respiratory Rate - - Oxygen Saturation - - Inhaled Oxygen Concentration - - Weight 83.9 kg (185 lb) 08/10/2016 12:01 AM CDT Height 149.9 cm (4' 11) 08/10/2016 12:01 AM CDT Body Mass Index 37.37 08/10/2016 12:01 AM CDT Plan of Treatment Not on file
--- OUTSIDE RECORDS SUMMARY | 2024-12-03 10:05 | XMS_ITS | Data Portability ---
Author Organization [facility] [employer], Main Office Address [address] [place] [address] Care Team Providers Care Legal Project Manager Name Role Phone HEIDI BOOTH Primary Care Provider HEIDI BOOTH Referring Provider [phone] Assessment No assessment recorded. Plan of Treatment Reminders Order Date Submit Date Provider Last Modified By Organization Details Last Modified Time Details Appointments None recorded. Lab BMP, serum or plasma [address] (Lab), [address] [place], [address], 3 08:00:16 lipid panel, serum [address] (Lab), [address] [place], [address], 3 08:00:16 Referral None recorded. Procedures None recorded. Surgeries None recorded. Imaging MAMMO, screening, digital, bilateral 2022 023 [email or web address] [facility], [address], [address] [address], [place], [address], 3 08:40:45 Medication Orders Xifaxan 550 mg tablet 2023 024 [facility] [place], [address], 4 10:56:44 ezetimibe 10 mg tablet 2023 024 [facility] [place], [address], 11:00:30 Patient TargetsNo targets recorded. Patient Instructions Encounter Date Encounter Id Patient Instructions Last Modified By Organization Details Last Modified Time 11/29/2022 [id number] dementia rating scale-2* Not available 11/29/2022 08:43:22 alcohol misuse* Not available 11/29/2022 08:43:22 depression screening* Not available 11/29/2022 08:43:22 multi-dimensiona l health assessment questionnaire* Not available 11/29/2022 08:43:22 Personalized Hea lt Plan and Screening Recommendations Advance Directives - Do you have one? Yes Advance Directives - Do we have your advance directive on file in your health record? No, please bring in a copy at your earliest convenience Primary Prevention/Interven tion (prevents or decreases the chance of common diseases from occurring) Smoking Risk: Non Smoker I have no recommendations. Alcohol Misuse Screening: Negative I have no recommendations. Weight: Overweight try to lose 5% of your body weight Physical activity: Need more exercise/physical activity minimum of 10-20 minutes of activity that causes mild breathlessness/day Nutrition: Average Refer to attached handout Heart-Healthy Diet: After Your Visit Fall Risk (screened today): Intermediate Refer to attached handout Preventing Falls: After your Visit Vaccines Pneumococcal: No further needed Influenza: Your next one in the fall of this year Chronic Disease Risks Stroke: Intermediate Risk Continue current treatment plan Heart Attack: Intermediate Risk Continue current treatment plan Clogging of the Arteries: Intermediate Risk Continue current treatment plan Diabetes: Low Risk I have no recommendations Secondary Prevention/Interven tion (detects treatable diseases before they may cause symptoms, disability, or ) Breast Cancer Screening with mammogram: Patient stated she is due. Cervical/Uterine/Ov chanelle Cancer Screening: Patient stated she is up to date. Osteoporosis Screening: No screening necessary Date Screening Last Performed: Patient stated she had one a couple months ago with Dr. Adriel Lu's office. Colon Cancer Screening: Cologuard (DNA stool test) No screening necessary Date Screening Last Performed: Cologuard negative 10/10/20 Eye Disease Screening: Recommended today Dementia Risk: Low I have no recommendations Depression Screening: Negative I have no recommendations. [email or web address] Not available 11/28/2022 16:23:04 6 m ofu htn, weight, knee pain, vision, gerd, lipid, mammogram, labs, cologuard. Not available 11/29/2022 08:51:16 05/18/2023 [id number] 05/18/23 patient aware of jens departure. FU in 1-3 mo with new provider. Not available 05/18/2023 10:59:36 Reason for Referral None Reported. Results Created Date Observation Date Name Description Value Unit Range Abnormal Flag Note LastModifiedBy Organization Detail LastModifiedTime 11/26/19 22 11/25/2021 VITAM IN D 25-HY DROXY vd25oh 47.2 NG/mL 30-100 Vitam in D Statu s: Defic ient: <20 ng/mL Insuf ficie nt: 20-29 ng/mL Suffi cient : 30-10 0 ng/mL Not Available [facility] (Lab) [address] [place], [address], 11/25/2021 21:49:54 11/26/19 22 11/25/2021 TSH W/REF ARCELIA FT4 TSH with reflex free T4 1.760 uIU/m L 0.465- 4.680 Not Available [facility] (Lab) [address] [place], [address], 11/25/2021 20:45:40 11/26/19 22 11/25/2021 BASIC METAB OLIC PANEL sodium 138 mmol/ L 137-14 5 Not Available [facility] (Lab) [address] [place], [address], 11/25/2021 20:19:55 11/26/19 22 11/25/2021 BASIC METAB OLIC PANEL potassium 4.1 mmol/ L 3.5-5. 1 Not Available [facility] (Lab) [address] [place], [address], 11/25/2021 20:19:55 11/26/19 22 11/25/2021 BASIC METAB OLIC PANEL chloride 101 mmol/ L 98-107 Not Available [facility] (Lab) [address] [place], [address], 11/25/2021 20:19:55 11/26/19 22 11/25/2021 BASIC METAB OLIC PANEL carbon dioxide 25 mmol/ L 22-30 Not Available [facility] (Lab) [address] [place], [address], 11/25/2021 20:19:55 11/26/19 22 11/25/2021 BASIC METAB OLIC PANEL anion gap 16.1 mmol/ L 14-22 Not Available [facility] (Lab) [address] [place], [address], 11/25/2021 20:19:55 11/26/19 22 11/25/2021 BASIC METAB OLIC PANEL glucose 91 mg/dL 70-99 Not Available [facility] (Lab) [address] [place], [address], 11/25/2021 20:19:55 11/26/19 22 11/25/2021 BASIC METAB OLIC PANEL BUN 27 mg/dL 8-19 high Not Available [facility] (Lab) [address] [place], [address], 11/25/2021 20:19:55 11/26/19 22 11/25/2021 BASIC METAB OLIC PANEL creatinine 0.83 mg/dL 0.66-1 .25 Not Available [facility] (Lab) [address] [place], [address], 11/25/2021 20:19:55 11/26/19 22 11/25/2021 BASIC METAB OLIC PANEL GFR >60 Refer ence Range : [place] GFR Healt hy Adult : >60 mL/mi n/1.7 3 m2 Chron ic Kidne y Disea se: 15-60 mL/mi n/1.7 3 m2 Kidne y Failu re: <15/m L/min /1.73 m2 www.n iddk. nih.g ov The MDRD study equat ion has not been valid ated in child omid <18 years of age; pregn ant women ; the elder ly >85 years of age; or in some racia l or ethni c subgr oups, such as Hispa nics. Outsi de the valid ated peter eters , estim ated GFR is less accur ate, requi ring clini domenico judgm ent on a case- by-ca se basis . Clini domenico inter preta tion for other races and ages must be made by the clini tiffanie. The MDRD study equat ion has not been valid ated for the evalu ation of serum creat inine relat ed to nutri catherine l statu s or medic ation usage . For perso ns <18 years of age, a pedia tric GFR calcu lator is avail able on the [facility] websi te: https ://tatiana glass.genesis villafana.o rg/pr ofess ional s/kdo qi/gf r_cal culat or Not Available [facility] (Lab) [address] [place], [address], 11/25/2021 20:19:55 11/26/19 22 11/25/2021 BASIC METAB OLIC PANEL calcium 10.2 mg/dL 8.4-10 .2 Not Available [facility] (Lab) [address] [place], [address], 11/25/2021 20:19:55 11/26/19 22 11/25/2021 HEPAT IC/LI REILLY PANEL alkaline phosphatase 67 U/L 38-126 Not Available [facility] (Lab) [address] [place], [address], 11/25/2021 20:19:50 11/26/19 22 11/25/2021 HEPAT IC/LI REILLY PANEL alanine aminotransfe rase 13 U/L 0-35 Not Available [facility] (Lab) [address] [place], [address], 11/25/2021 20:19:50 11/26/19 22 11/25/2021 HEPAT IC/LI REILLY PANEL aspartate aminotransfe rase 22 U/L 15-37 Not Available [facility] (Lab) [address] [place], [address], 11/25/2021 20:19:50 11/26/19 22 11/25/2021 HEPAT IC/LI REILLY PANEL bilirubin, total 0.50 mg/dL 0.20-1 .30 Not Available [facility] (Lab) [address] [place], [address], 11/25/2021 20:19:50 11/26/19 22 11/25/2021 HEPAT IC/LI REILLY PANEL bilirubin, conjugated (direct) 0.00 mg/dL 0.00-0 .30 Not Available [facility] (Lab) [address] [place], [address], 11/25/2021 20:19:50 11/26/19 22 11/25/2021 HEPAT IC/LI REILLY PANEL biliurubin,u ncong. (indirect) 0.20 mg/dL 0.00-1 .1 Not Available [facility] (Lab) [address] [place], [address], 11/25/2021 20:19:50 11/26/19 22 11/25/2021 HEPAT IC/LI REILLY PANEL total protein 7.3 g/dL 6.3-8. 2 Not Available [facility] (Lab) [address] [place], [address], 11/25/2021 20:19:50 11/26/19 22 11/25/2021 HEPAT IC/LI REILLY PANEL albumin 4.5 g/dL 3.0-4. 4 high Not Available [facility] (Lab) [address] [place], [address], 11/25/2021 20:19:50 11/26/19 22 11/25/2021 HEPAT IC/LI REILLY PANEL globulin 2.8 g/dL 2.6-4. 2 Not Available [facility] (Lab) [address] [place], [address], 11/25/2021 20:19:50 11/26/19 22 11/25/2021 HEPAT IC/LI REILLY PANEL A/G ratio 1.6 ratio 1.0-2. 0 Not Available [facility] (Lab) [address] [place], [address], 11/25/2021 20:19:50 11/26/19 22 11/25/2021 LIPID PANEL cholesterol 265 mg/dL 140-19 9 high NIH MARK NSUS RECOM MENDA TION FOR DOTTIE STERO L: ADULT CHILD LOW RISK: <200 <170 BORDE RLINE : <200- 239 ----- HIGH RISK: >240 >200 Not Available [facility] (Lab) [address] [place], [address], 11/25/2021 20:19:45 11/26/19 22 11/25/2021 LIPID PANEL triglyceride s 218 mg/dL 0-150 high NIH MARK NSUS REPOR T RECOM MENDA TION FOR TRIGL YCERI YISSEL: ADULT CHILD LOW RISK: <150 ----- BODER LINE: 150-1 99 ----- HIGH RISK: >200 ----- Not Available [facility] (Lab) [address] [place], [address], 11/25/2021 20:19:45 11/26/19 22 11/25/2021 LIPID PANEL HDL cholesterol 62 mg/dL 40- Not Available [facility] (Lab) [address] [place] [address], [address], 11/25/2021 20:19:45 11/26/19 22 11/25/2021 LIPID PANEL LDL cholesterol, calculated 159 mg/dL 0-130 high NIH MARK NSUS REPOR T RECOM MENDA TIONS FOR LDL: ADULT CHILD LOW RISK <130 <110 (OPTI MAL LDL) <100 ----- BORDE RLINE : 130-1 59 ----- HIGH RISK: >160 >130 A TRIGL YCERI DE RESUL T >400 INVAL IDATE S THE CALCU LATIO N FOR LDL FRACT IONAT ION - THE LDL RESUL T WILL NOT BE REPOR KARL. Not Available [facility] (Lab) [address] [place], [address], 11/25/2021 20:19:45 06/22/19 23 06/22/2022 LIPID PANEL cholesterol 234 mg/dL 140-19 9 high NIH MARK NSUS RECOM MENDA TION FOR DOTTIE STERO L: ADULT CHILD LOW RISK: <200 <170 BORDE RLINE : <200- 239 ----- HIGH RISK: >240 >200 Not Available [facility] (Lab) [address] [place], [address], 06/22/2022 13:53:49 06/22/1906/22/2022 LIPID PANEL triglyceride s 189 mg/dL 0-150 high NIH MARK NSUS REPOR T RECOM MENDA TION FOR TRIGL YCERI YISSEL: ADULT CHILD LOW RISK: <150 ----- BODER LINE: 150-1 99 ----- HIGH RISK: >200 ----- Not Available [facility] (Lab) [address] [place], [address], 06/22/2022 13:53:49 06/22/19 23 06/22/2022 LIPID PANEL HDL cholesterol 58 mg/dL 40- Not Available [facility] (Lab) [address] [place], [address], 06/22/2022 13:53:49 06/22/19 23 06/22/2022 LIPID PANEL LDL cholesterol, calculated 138 mg/dL 0-130 high NIH MARK NSUS REPOR T RECOM MENDA TIONS FOR LDL: ADULT CHILD LOW RISK <130 <110 (OPTI MAL LDL) <100 ----- BORDE RLINE : 130-1 59 ----- HIGH RISK: >160 >130 A TRIGL YCERI DE RESUL T >400 INVAL IDATE S THE CALCU LATIO N FOR LDL FRACT IONAT ION - THE LDL RESUL T WILL NOT BE REPOR KARL. Not Available [facility] (Lab) [address] [place], [address], 06/22/2022 13:53:49 06/22/19 23 06/22/2022 BASIC METAB OLIC PANEL sodium 140 mmol/ L 137-14 5 Not Available [facility] (Lab) [address] [place], [address], 06/22/2022 13:53:46 06/22/19 23 06/22/2022 BASIC METAB OLIC PANEL potassium 3.9 mmol/ L 3.5-5. 1 Not Available [facility] (Lab) [address] [place], [address], 06/22/2022 13:53:46 06/22/19 23 06/22/2022 BASIC METAB OLIC PANEL chloride 102 mmol/ L 98-107 Not Available [facility] (Lab) [address] [place], [address], 06/22/2022 13:53:46 06/22/19 23 06/22/2022 BASIC METAB OLIC PANEL carbon dioxide 31 mmol/ L 22-30 high Not Available [facility] (Lab) [address] [place], [address], 06/22/2022 13:53:46 06/22/19 23 06/22/2022 BASIC METAB OLIC PANEL anion gap 10.9 mmol/ L 14-22 low Not Available [facility] (Lab) [address] [place], [address], 06/22/2022 13:53:46 06/22/19 23 06/22/2022 BASIC METAB OLIC PANEL glucose 100 mg/dL 70-99 high Not Available [facility] (Lab) [address] [place], [address], 06/22/2022 13:53:46 06/22/19 23 06/22/2022 BASIC METAB OLIC PANEL BUN 24 mg/dL 8-19 high Not Available [facility] (Lab) [address] [place], [address], 06/22/2022 13:53:46 06/22/19 23 06/22/2022 BASIC METAB OLIC PANEL creatinine 0.87 mg/dL 0.66-1 .25 Not Available [facility] (Lab) [address] [place], [address], 06/22/2022 13:53:46 06/22/19 23 06/22/2022 BASIC METAB OLIC PANEL GFR >60 Refer ence Range : [place] GFR Healt hy Adult : >60 mL/mi n/1.7 3 m2 Chron ic Kidne y Disea se: 15-60 mL/mi n/1.7 3 m2 Kidne y Failu re: <15/m L/min /1.73 m2 www.n iddk. nih.g ov The MDRD study equat ion has not been valid ated in child omid <18 years of age; pregn ant women ; the elder ly >85 years of age; or in some racia l or ethni c subgr oups, such as ok nics. Outsi de the valid ated peter eters , estim ated GFR is less accur ate, requi ring clini domenico judgm ent on a case- by-ca se basis . Clini domenico inter preta tion for other races and ages must be made by the clini tiffanie. The MDRD study equat ion has not been valid ated for the evalu ation of serum creat inine relat ed to nutri catherine l statu s or medic ation usage . For perso ns <18 years of age, a pedia tric GFR calcu lator is avail able on the [facility] websi te: https ://tatiana w.genesis villafana.o rg/pr ofess ional s/kdo qi/gf r_cal culat or Not Available [facility] (Lab) [address] [facility] [place], [address], 06/22/2022 13:53:46 06/22/19 23 06/22/2022 BASIC METAB OLIC PANEL calcium 9.5 mg/dL 8.4-10 .2 Not Available [facility] (Lab) [address], [place], [address], 06/22/2022 13:53:46 01/17/2001/17/2023 LIPID PANEL , STAND ERNST cholesterol, total 217 mg/dL <200 high Not Available [address], [address], 01/17/2023 06:44:00 01/17/2001/17/2023 LIPID PANEL , STAND ERNST HDL cholesterol 51 mg/dL > or = 50 normal Not Available [facility] [address], [address], 01/17/2023 06:44:00 01/17/20 23 01/17/2023 LIPID PANEL , STAND ERNST triglyceride s 195 mg/dL <150 high Not Available [facility] [address], [address], 01/17/2023 06:44:00 01/17/2001/17/2023 LIPID PANEL , STAND ERNST LDL-choleste rol 132 mg/dL _(domenico c) high Refer ence range : <100 Carline able range <100 mg/dL for prima ry preve ntion ; <70 mg/dL for patie nts with CHD or diabe tic patie nts with > or = 2 CHD risk facto rs. LDL-C is now calcu lated using the Daysi n-Hop kins reneeu sayra n, which is a valid ated novel dinora figueroa accur acy than the Fried delmis equat ion in the estim ation of LDL-C . Daysi erickson SS et al. MINISTERIO. 2013; 310(1 9): 2061- 2068 (http ://ed ucati on.Qu estDi queenieos tics. com/f aq/FA Q164) Not Available [address] [address] [place], [address], 01/17/2023 06:44:00 01/17/20 23 01/17/2023 LIPID PANEL , STAND ERNST chol/HDLC ratio 4.3 (calc ) <5.0 normal Not Available [address], [address], 01/17/2023 06:44:00 01/17/2001/17/2023 LIPID PANEL , STAND ERNST non HDL cholesterol 166 mg/dL _(domenico c) <130 high For patie nts with diabe pradeep plus 1 major ASCVD risk facto r, treat ing to a non-H DL-C goal of <100 mg/dL (LDL- C of <70 mg/dL ) is consi dered a thera peuti c optio n. Not Available [address], [address], 01/17/2023 06:44:00 01/17/2001/17/2023 BASIC METAB OLIC PANEL glucose 97 mg/dL 65-99 normal Fasti ng refer ence inter otoniel Not Available [address], [address], 01/17/2023 06:44:01 01/17/2001/17/2023 BASIC METAB OLIC PANEL urea nitrogen (BUN) 16 mg/dL 7-25 normal Not Available [address], [address], 01/17/2023 06:44:01 01/17/2001/17/2023 BASIC METAB OLIC PANEL creatinine 0.96 mg/dL 0.60-1 .00 normal Not Available [address] [address] [place], [address], 01/17/2023 06:44:01 01/17/2001/17/2023 BASIC METAB OLIC PANEL eGFR 60 mL/mi n/1.7 3m2 > or = 60 normal Not Available [address], [address], 01/17/2023 06:44:01 01/17/2001/17/2023 BASIC METAB OLIC PANEL BUN/creatini ne ratio SEE NOTE: (calc ) 6-22 Not Repor karl: BUN and Creat inine are withi n refer ence range . Not Available [address], [address], 01/17/2023 06:44:01 01/17/2001/17/2023 BASIC METAB OLIC PANEL sodium 138 mmol/ L 135-14 6 normal Not Available [address], [address], 01/17/2023 06:44:01 01/17/2001/17/2023 BASIC METAB OLIC PANEL potassium 3.8 mmol/ L 3.5-5. 3 normal Not Available [address], [address], 01/17/2023 06:44:01 01/17/2001/17/2023 BASIC METAB OLIC PANEL chloride 100 mmol/ L 98-110 normal Not Available [address], [address], 01/17/2023 06:44:01 01/17/2001/17/2023 BASIC METAB OLIC PANEL carbon dioxide 28 mmol/ L 20-32 normal Not Available [address] [address] [place], [address], 01/17/2023 06:44:01 01/17/2001/17/2023 BASIC METAB OLIC PANEL calcium 9.5 mg/dL 8.6-10 .4 normal Not Available [facility] [address], [address], 01/17/2023 06:44:01 08/20/19 22 08/19/2021 XR, knee No observ ation record ed. [address]IGRATION.[id number] [place] [address], [address], 07/06/2022 05:06:23 09/11/19 22 09/09/2021 XR, knee No observ ation record ed. [address]IGRATION.[id number] [place] [address], [place], [address], 07/06/2022 05:06:23 10/09/19 22 10/07/2021 XR, knee No observ ation record ed. [address]IGRATION.[id number] [place] [address], [place], [address], 07/06/2022 05:06:23 12/03/19 22 11/29/2021 XR, knee No observ ation record ed. MIGRATION.[id number] [place] [address], [place], [address], 07/06/2022 05:06:23 12/17/19 22 12/16/2021 XR, knee No observ ation record ed. [address]IGRATION.[id number] [place] [address], [place], [address], 07/06/2022 05:06:23 01/08/20 22 01/06/2022 XR, knee No observ ation record ed. [address]IGRATION.[id number] [place] [address], [place], [address], 07/06/2022 05:06:23 02/05/20 22 02/03/2022 XR, knee No observ ation record ed. MIGRATION.[id number] [place] [address], [place], [address], 07/06/2022 05:06:23 08/19/19 23 08/18/2022 XR, knee No observ ation record ed. [address] [address], [place], [address], 08/19/2022 07:58:09 Result Notes None recorded. Problems Name Problem SNOMED Code Status Onset Date Resolution Date Notes Provider Name and Address Organization Details Recorded Time Eye infection 546655509 Active Not Available [facility] 3 04:53:47 Cataract 304727228 Active Not Available [facility] 3 04:53:47 Abdominal pain 91040363 Active Not Available [facility] 3 04:53:47 Gastroesophag eal reflux disease 440544221 Active Not Available [facility] 3 04:53:47 Vitamin D deficiency 82799134 Active Not Available [facility] 3 04:53:48 Chronic osteoarthriti s 66815783 Active Not Available [facility] 3 04:53:48 Hyperlipidemi a 10529661 Active Not Available [facility] 3 04:53:48 Essential hypertension 66589291 Active Not Available [facility] 3 04:53:48 Allergic rhinitis 04482536 Active Not Available [facility] 3 04:53:48 Adverse reaction to drug 25542796 Active Not Available [facility] 3 04:53:48 Urinary tract infectious disease 72815350 Active Not Available [facility] 3 04:53:48 Fatigue 33099451 Active Not Available [facility] 3 04:53:48 Kidney disease 62864582 Active Not Available [facility] 3 04:53:49 Skin lesion 03934094 Active Not Available [facility] 3 04:53:49 Seasonal allergy 150219211 Active 2016 Not Available [facility] 3 04:53:48 Knee pain Active 2018 Not Available [facility] 3 04:53:48 Screening for malignant neoplasm of colon Active 2021 Not Available [facility] 3 04:53:48 Diarrhea 73081665 Active 2023 Heidi Booth NP [address] [facility] [address], [address] , [facility] [employer] [facility] I Had Cancer [facility] 4 08:54:06 Irritable bowel syndrome with diarrhea 754330430 Active 2023 eHidi Booth NP [address], [place], [address] , [facility] [employer] [facility] [employer] 4 08:58:06 Problem Notes None recorded. Procedures Surgical History Date Name Laterality Status Provider Name and Address Organization Details Recorded Time 11/30/19 23 Medicare Wellness CPT Code, subsequent completed Kristen Mondragon RN [facility] [employer] 11/28/2022 16:13:11 Knee Replacement completed Not Available [facility] 07/06/2022 04:42:34 Knee Surgery completed Not Available [facility] 07/06/2022 04:42:34 Imaging Results None recorded. Procedure Notes None recorded. Medical Equipment None Reported. Allergies Allergen ID Allergen Name Allergen Category Reaction Reaction Severity Criticality Documentation Date Start Date Code Code System Note Provider Name and Address Organization Details Recorded Time 8612 Vytorin medicatio n Not available Not available Not available 07/06/2022 91313 5 RxNorm muscl e pain Not Available [facility] 3 05:06:01 8613 Product containin g 3-hydroxy -3-methyl glutaryl- coenzyme A reductase inhibitor (product) medicatio n myalgias (muscle pain) moderate Not available 07/06/2022 33521 009 SNOMED Not Available [facility] 3 05:06:01 8614 Paxil medicatio n Not available Not available Not available 07/06/2022 24740 8 RxNorm flush ing Not Available [facility] 3 05:06:01 Medications Name Sig Start Date Stop Date Status Note LastModified by Organization Details LastModified Time azelastine 0.05 % eye drops Instill 1 drop twice a day by ophthalmi c route as needed for 30 days. active Not Available Not Available No t Available azithromyci n 250 mg tablet TAKE 2 TABLETS (500 MG) BY ORAL ROUTE ONCE DAILY FOR 1 DAY THEN 1 TABLET (250 MG) BY ORAL ROUTE ONCE DAILY FOR 4 DAYS active Not Available Not Available No t Available meloxicam 15 mg tablet TAKE 1/2 (ONE-HALF ) TABLET BY MOUTH IN THE MORNING AND 1/2 (ONE-HALF ) TABLET IN THE EVENING WITH FOOD. STOP IF STOMACH UPSET 06/22 completed Not Available Not Available Not Available metoprolol succinate ER 100 mg tablet,exte nded release 24 hr TAKE 1 TABLET BY MOUTH ONCE DAILY active Not Available Not Available No t Available prednisone 5 mg tablet TAKE 1 TABLET BY MOUTH ONCE DAILY FOR 3 WEEKS 06/22 completed Not Available Not Available Not Available meclizine 12.5 mg tablet 1-2 tab po tid prn vertigo active Not Available Not Available No t Available omeprazole 40 mg capsule,del ayed release Take 1 capsule every day by oral route for 90 days. 02/16 completed Not Available Not Available Not Available aspirin 81 mg tablet,mikey yed release TAKE 1 TABLET BY MOUTH TWICE DAILY FOR 14 DAYS active Not Available Not Available No t Available tramadol 50 mg tablet Take 1 tablet every 6 hours by oral route. active Not Available Not Available No t Available losartan 100 mg-hydrochl orothiazide 25 mg tablet TAKE 1 TABLET BY MOUTH ONCE DAILY IN THE MORNING active Not Available Not Available No t Available oxycodone-a cetaminophe n 5 mg-325 mg tablet 06/22 completed Not Available Not Available Not Available amoxicillin 875 mg tablet TAKE 1 TABLET BY MOUTH TWICE DAILY UNTIL GONE 06/22 completed Not Available Not Available Not Available erythromyci n 5 mg/gram (0.5 %) eye ointment APPLY 1 CM RIBBON INTO THE LOWER CONJUNCTI OTONIEL SAC(S) IN THE AFFECTED EYE(S) BY OPHTHALMI C ROUTE 4 TIMES PER DAY FOR 7 DAYS. active Not Available Not Available No t Available tazarotene 0.1 % topical cream APPLY TO THE AFFECTED AREA(S) BY TOPICAL ROUTE ONCE DAILY at night 10/23 completed Not Available Not Available Not Available ranitidine 150 mg tablet TAKE 1 TABLET BY MOUTH EVERY DAY active Not Available Not Available No t Available prednisone 50 mg tablet TK 1 T PO Q 6 H STARTING AT 7 PM THE NIGHT BEFORE TEST. 7PM 1 AM 7 AM active Not Available Not Available No t Available omeprazole 20 mg capsule,del ayed release TAKE 1 CAPSULE BY MOUTH ONCE DAILY active Not Available Not Available No t Available pravastatin 20 mg tablet Take 1 tablet every day by oral route. 06/27 completed Not Available Not Available Not Available hydrochloro thiazide 25 mg tablet Take 1 tablet every day by oral route. 03/30 completed Not Available Not Available Not Available mupirocin 2 % topical ointment active Not Available Not Available Not Available zolpidem 5 mg tablet 1 tab po nightly. active Not Available Not Available No t Available losartan 100 mg tablet Take 1 tablet every day by oral route. 03/30 completed Not Available Not Available Not Available fluticasone propionate 50 mcg/actuati on nasal spray,suspe nsion Gallatin 1 spray every day by intranasa l route. active Not Available Not Available No t Available amoxicillin 875 mg-potassiu m clavulanate 125 mg tablet Take 1 tablet every 12 hours by oral route for 10 days. active Not Available Not Available No t Available ezetimibe 10 mg tablet TAKE 1 TABLET BY MOUTH ONCE DAILY active Not Available Not Available No t Available olmesartan 40 mg-hydrochl orothiazide 25 mg tablet 1 po daily active Could n't get benic ar. Not Available Not Available Not Available Vytorin 10 mg-10 mg tablet 06/07 completed Not Available Not Available Not Available Vitamin C 2019 active Not Available Not Available Not Avai lable cranberry 1ooo mg daily 2019 active Not Available Not Available Not Avai lable Durezol 0.05 % eye drops active Not Available Not Available Not Available Besivance 0.6 % eye drops,suspe nsion active Not Available Not Available Not Available Xifaxan 550 mg tablet TAKE 1 TABLET BY MOUTH THREE TIMES DAILY FOR 14 DAYS active Not Available Not Available No t Available Probiotic 1 PO QD 2014 active Not Available Not Available Not Avai lable Vitamin D3 50 mcg (2,000 unit) capsule Take 1 capsule every day by oral route. 2014 active Not Available Not Available Not Avai lable Prolensa 0.07 % eye drops active Not Available Not Available Not Available Virtussin AC 10 mg-100 mg/5 mL oral liquid TK 10 ML PO Q 8 H PRF 5 DAYS 02/26 completed Not Available Not Available Not Available Fluzone High-Dose Quad 2019- (PF) 240 mcg/0.7 mL IM syringe [facility]ARM[facility] 03/30 completed Not Available Not Available Not Available Vitals Date Recorded Body height Body mass index (BMI) Body weight Body temperature Heart rate Respiratory rate Oxygen saturation Oxygen saturation in Arterial blood by Pulse oximetry Pain severity - 0-10 verbal numeric rating [Score] - Reported Systolic And Diastolic Provider Name and Address Organization Details Last Updated DateTime 4 149.86 cm 34.6 kg/m2 06938.4 g 96.4 [degF] 59 /min 20 /min 98 % 98 % 1 186/112 mm[Hg] Heidi Jj RN [facility] [employer] 4 08:35:11 Date Recorded Body mass index (BMI) Body height Oxygen saturation Oxygen saturation in Arterial blood by Pulse oximetry Heart rate Respiratory rate Body temperature Body weight Systolic And Diastolic Provider Name and Address Organization Details Last Updated DateTime 3 33.9 kg/m2 149.86 cm 97 % 97 % 52 /min 16 /min 96.9 [degF] 24155.4 4 g 120/86 mm[Hg] Not Available [facility] 3 04:49:37 Date Recorded Body mass index (BMI) Body height Oxygen saturation Oxygen saturation in Arterial blood by Pulse oximetry Heart rate Body temperature Body weight Systolic And Diastolic Provider Name and Address Organization Details Last Updated DateTime 2 33.3 kg/m2 149.86 cm 98 % 98 % 68 /min 97.3 [degF] 80594.7 4 g 124/72 mm[Hg] Not Available [facility] 3 04:49:36 Date Recorded Body mass index (BMI) Body height Oxygen saturation Oxygen saturation in Arterial blood by Pulse oximetry Heart rate Body temperature Body weight Systolic And Diastolic Provider Name and Address Organization Details Last Updated DateTime 2 33.1 kg/m2 149.86 cm 97 % 97 % 75 /min 97.5 [degF] 80352.1 5 g 124/78 mm[Hg] Not Available [facility] 3 04:49:36 Date Recorded Systolic And Diastolic Provider Name and Address Organization Details Last Updated DateTime 11/29/2022 128/88 mm[Hg] Heidi Booth NP [address] [facility] [address], [place], [address], [facility] [employer] 11/29/2022 08:33:50 Date Recorded Body height Body mass index (BMI) Body weight Body temperature Heart rate Heart rate Respiratory rate Oxygen saturation Oxygen saturation in Arterial blood by Pulse oximetry Pain severity - 0-10 verbal numeric rating [Score] - Reported Systolic And Diastolic Provider Name and Address Organization Details Last Updated DateTime 3 149.86 cm 34.6 kg/m2 23152.6 5 g 96.7 [degF] 55 /min 55 /min 20 /min 97 % 97 % 0 158/98 mm[Hg] Heidi Jj RN [place] [facility] [place] [employer] 3 08:09:43 Social History Question Answer Notes LastModified by Organization Details LastModified Time Tobacco Smoking Status Never Smoker Not Available [facility] 07/06/2022 04:41:31 Do You Have An Advance Directive? Yes [id number] Information not available 07/06/2022 Are You Blind Or Do You Have Difficulty Seeing? No MIGRATION.030 [id number] Information not available 07/06/2022 What Is Your Level Of Caffeine Consumption? Moderate MIGRATION.030 [id number] Information not available 07/06/2022 How Much Tobacco Do You Chew? None MIGRATION.030 [id number] Information not available 07/06/2022 In The 14 Days Before Symptom Onset, Have You Had Close Contact With A Laboratory-confi rmed COVID-19 While That Case Was Ill? No MIGRATION.030 [id number] Information not available 07/06/2022 In The 14 Days Before Symptom Onset, Have You Had Close Contact With A Person Who Is Under Investigation For COVID-19 While That Person Was Ill? No MIGRATION.030 [id number] Information not available 07/06/2022 Are You Deaf Or Do You Have Serious Difficulty Hearing? No MIGRATION.0301 [id number] Information not available 07/06/2022 What Type Of Diet Are You Following? REGULAR MIGRATION.030 [id number] Information not available 07/06/2022 Which Illicit Or Recreational Drugs Have You Used? No MIGRATION.030 [id number] Information not available 07/06/2022 Have There Been Any Changes To Your Family Or Social Situation? Yes MIGRATION.030 [id number] Information not available 07/06/2022 What Is The Fluoride Status Of Your Home? Unknown MIGRATION.030 035013 Information not available 07/06/2022 Do You Use Insect Repellent Routinely? No MIGRATION.0301 [id number] Information not available 07/06/2022 Where Do You Live? SingleLevelHouse With Basement MIGRATION.0301 [id number] Information not available 07/06/2022 Presence Of Domestic Violence No Information not available 11/29/2022 Guns Present In The Home? No Information not available 11/29/2022 Are You Able To Care For Yourself? Yes Information not available 11/29/2022 Are You Blind Or Do Yo Have Difficulty Seeing? Yes Wears Glasses Information not available 11/29/2022 Are You Deaf Or Do You Have Serious Difficulty Hearing? No Information not available 11/29/2022 General Stress Level? Low Information not available 11/29/2022 Live Alone Of With Others? Alone Information not available 11/29/2022 What Was The Date Of Your Most Recent Tobacco Screening? 11/25/2021 MIGRATION.0301 [id number] Information not available 07/06/2022 What Is Your Relationship Status? MIGRATION.0301 [id number] Information not available 07/06/2022 Do You Use Your Seat Belt Or Car Seat Routinely? Yes MIGRATION.0301 [id number] Information not available 07/06/2022 Do You Have Smoke And Carbon Monoxide Detectors In Your Home? Yes MIGRATION.0301 [id number] Information not available 07/06/2022 Are You Passively Exposed To Smoke? No MIGRATION.0301 [id number] Information not available 07/06/2022 Are There Any Smokers In Your House? No MIGRATION.0301 [id number] Information not available 07/06/2022 How Much Tobacco Do You Smoke? No MIGRATION.0301 [id number] Information not available 07/06/2022 Do You Use Sunscreen Routinely? No MIGRATION.0301 [id number] Information not available 07/06/2022 Has Tobacco Cessation Counseling Been Provided? No MIGRATION.0301 [id number] Information not available 07/06/2022 Do You Have Difficulty Walking Or Climbing Stairs? No MIGRATION.0301 [id number] Information not available 07/06/2022 Do You Have Any Dietary Restrictions? No MIGRATION.0301 [id number] Information not available 07/06/2022 Sex: Unknown Functional Status Question Answer Note LastModified by Organizat [employer] Details LastModified Time Do you or have you ever used any other forms of tobacco or nicotine? No MIGRATION.74908 77976 Information not available 07/06/2022 What is your level of alcohol consumption? Occasional MIGRATION.79957 82846 Information not available 07/06/2022 Do you or have you ever used smokeless tobacco? Never used smokeless tobacco MIGRATION.43342 48511 Information not available 07/06/2022 Do you have transportation difficulties? No MIGRATION.64830 71771 Information not available 07/06/2022 Are you able to walk? YESASSIST Patient stated she will use a cane sometimes. MIGRATION.44278 24031 Information not available 07/06/2022 Do you have difficulty doing errands alone? No MIGRATION.49083 09992 Information not available 07/06/2022 Are you able to care for yourself independently? Yes MIGRATION.72535 82620 Information not available 07/06/2022 What is your occupation? retired MIGRATION.34471 78458 Information not available 07/06/2022 Do you have difficulty dressing, bathing, grooming, or toileting? No MIGRATION.56104 12746 Information not available 07/06/2022 Do you or have you ever used e-cigarettes or vape? Never used electronic cigarettes MIGRATION.28240 01699 Information not available 07/06/2022 What is your exercise level? Moderate MIGRATION.76095 30682 Information not available 07/06/2022 Mental Status Question Answer Note LastModified by [employer] Details LastModified Time Do you feel stressed (tense, restless, nervous, or anxious, or unable to sleep at night)? [id number] [id number] Information not available 07/06/2022 Do you have difficulty concentrating, remembering or making decisions? No MIGRATION.[id number] 26 Information not available 07/06/2022 Family History Relationship Description Onset Age of this Age Resolved Age Notes LastModified by Organization Details LastModified Time Mother Heart disease 70 MIGRATION.309 [id number] Not available 07/06/2022 04:42:40 Medical History Condition Response HYPERTENSION Y GERD/NAUSEA Y Gynecological History Statement/Question Response Date of Last Colonoscopy Most Recent Mammogram Date of LMP Most Recent Bone Density Obstetrics History GPAL:G 2 P 2 0 0 0 Type Value Full Term 2 Total 2 Immunizations Vaccine Type Date Status Note Provider Nam e and Address Organization Details Recorded Time Influenza, split virus, trivalent, preservative 6 completed Not Available [facility] 07/06/2022 05:05:44 COVID-19, mRNA, LNP-S, PF, 30 mcg/0.3 mL dose 1 completed Not Available [facility] 07/06/2022 05:05:44 Influenza, split virus, trivalent, preservative 1 completed Not Available [facility] 07/06/2022 05:05:44 COVID-19, mRNA, LNP-S, PF, 30 mcg/0.3 mL dose 1 completed Not Available [facility] 07/06/2022 05:05:44 COVID-19, mRNA, LNP-S, PF, 30 mcg/0.3 mL dose 1 completed Not Available [facility] 07/06/2022 05:05:44 Influenza, high-dose, quadrivalent, PF 0 completed Not Available [facility] 07/06/2022 05:05:44 Influenza, high-dose, quadrivalent, PF 9 completed Not Available [facility] 07/06/2022 05:05:44 pneumococcal polysaccharide PPV23 2 completed Not Available [facility] 07/06/2022 05:05:44 Td (adult) 9 completed Not Available [facility] 07/06/2022 05:05:44 pneumococcal polysaccharide PPV23 9 completed Not Available [facility] 07/06/2022 05:05:45 Tdap 0 completed Not Available [facility] 07/06/2022 05:05:45 Influenza, high-dose, trivalent, PF 8 completed Not Available [facility] 07/06/2022 05:05:45 Pneumococcal conjugate PCV 13 6 completed Not Available [facility] 07/06/2022 05:05:45 Influenza, high-dose, trivalent, PF 4 completed Not Available [facility] 07/06/2022 05:05:45 Influenza, split virus, trivalent, PF 3 completed Not Available [facility] 07/06/2022 05:05:45 Past Encounters Encounter ID Performer Location Encounter Start Date Encounter Closed Date Diagnosis/Indication Diagnosis SNOMED-CT Code Diagnosis ICD10 Code Diagnosis Note [id number] Harsha Rodríguez MD [address] [address] 09/22/2020 00:00:00 09/23/2020 12:52:28 [id number] Harsha Rodríguez MD [address] [address] 03/24/2021 00:00:00 03/24/2021 08:16:45 [id number] Harsha Rodríguez MD [address] [address] 09/01/2021 00:00:00 09/01/2021 15:48:09 [id number] Harsha Rodríguez MD [address] [address] 11/25/2021 00:00:00 11/25/2021 13:13:55 [id number] Harsha Rodríguez MD [address] [address] 06/22/2022 00:00:00 06/22/2022 10:42:46 [id number] Heidi Booth NP [address] [address] 11/29/2022 08:01:12 11/29/2022 08:54:41 Adult health examination 840978661 Z00.00 Encouraged well balanced meals, active lifestyle, and routine vision and dental appts. Screening for disorder 954459486 Z13.9 Hyperlipidemia 52772979 E78.5 Not able to have statin. Diet mods. Essential hypertension 73022620 I10 Metoprolol Succinate ER 100 mg po dailyLosar graves 100 mg- hctz 25 mg po daily.ASA 81 mg. Gastroesop hageal reflux disease 078841666 K21.9 Omeprazole 20 mg po daily.Can increase to 40 mg for 1 week if having flare. Diet mods discussed. Screening for malignant neoplasm of breast 119083850 Z12.39 [id number] Heidi Booth NP [facility] [address] [address] 05/18/2023 08:24:04 05/18/2023 11:04:41 Essential hypertension 31257908 I10 Metoprolol Succinate ER 100 mg po dailyLosar graves 100 mg- hctz 25 mg po daily.ASA 81 mg.< 2 gm sodium diet Hyperlipidemia 71051866 E78.5 Not able to have statin. Diet mods.Zetia Seasonal allergy 4498685 04 J30.2 stable. Chronic osteoarthritis 06869461 M19.90 knees off and on. Vitamin D deficiency 347 38389 E55.9 vit d 2000 units po daily. Knee pain 95740934 M25.5 69 arthritis Gastroesop hageal reflux disease 754364442 K21.9 Omeprazole 20 mg po daily.Can increase to 40 mg for 1 week if having flare. Diet mods discussed. Irritable bowel syndrome with diarrhea 294129193 K58.0 Try on xifaxan 550 mg tid for 14 days. Health Concerns Section Related Observation LastModified by Organization Detai ls LastModified Time None Recorded Concern Status LastModified by Organization Details LastModified Time None Recorded Advance Directives Directive Y: Payers Insurance Date Sequence Insurance Name Policy Number Policy Ricardo Covered Member ID Ricardo Member ID Guarantor Name 11/13/2023 1 [place] Mara Romero [id number] Mara Romero 11/13/2023 2 [place] 104 Mara Romero [id number] Mara Romero OBGyn Episode No OBEpisode recorded.
[2024-12-03 10:28] LABS: Hematocrit 38.5 % (37.0-47.0); Hemoglobin 13.2 g/dL (12.0-15.0); Immature Granulocyte Percent A 0.3 % (0-0.5); Lymphocytes Absolute Auto 2.56 K/mm3 (0.9-3.2); Mean Corpuscular HGB Conc 34.3 g/dl (32-36); Mean Corpuscular Hemoglobin 31.4 pg (26-34); Mean Corpuscular Volume 91.7 fl (80-100); Nucleated Red Blood Cells Absolute Auto 0.000 K/mm3 (0.0-0.012); Nucleated Red Blood Cells Perc 0.0 % (0.0-0.2); Platelet Count Result 277 k/mm3 (150-375); Red Blood Count 4.20 M/mm3 (4.2-5.4); White Blood Count 8.9 K/mm3 (4.5-10.0)
[2024-12-03 10:54] LABS: Anion Gap 8 mmol/L (4-12); Blood Urea Nitrogen 24 mg/dL (7-17); Calcium 9.8 mg/dL (8.4-10.2); Carbon Dioxide 26 mmol/L (22-30); Chloride 102 mmol/L (98-107); Estimated Glomerular Filt Rate 55; Glucose 98 mg/dL (65-110); Potassium 4.8 mmol/L (3.4-5.0); Sodium 136 mmol/L (137-145)
== END 2024-12-03 09:50 | disposition home or self-care (01) ==
LOC: ANHSURGERY 09:55
PROVIDERS: Anesthesiology; PCP Nurse Practitioner Family; Visit Provider Obstetrics & Gynecology
DX: Z01.818 Encounter for other preprocedural examination (principal); I10 Essential (primary) hypertension; N85.2 Hypertrophy of uterus
CPT/HCPCS: 36415; 80048; 85025; 86850; 86900; 86901

== ENCOUNTER 2024-12-06 02:00 | Day surgery (SDC) | payer MEDICARE, BC, SELFPAY ==
--- NOTE | 2024-12-02 10:53 | PC.NURSE ---
Report to the Outpatient Waiting Room, entrance under the green pavilion located off [facility], at time on date . Planned Procedure Time: .? Time changes happen often and if your time is changed the preop area will call you the afternoon before. - You and your visitor will be asked to self-screen and do not enter if you have any COVID symptoms. Please call surgeon if you need to reschedule. - A mask is optional within the hospital at this time. Patients may have clear liquids (water, carbonated beverages, clear teas, apple juice) until 3 hours prior to surgery with a maximum of 20 ounces. - No food from midnight until time of surgery and no smoking, or chewing tobacco (or any form of nicotine). No chewing gum, candy or mints. - Infants may have breast milk until 4 hours before surgery, infant formula 6 hours prior to surgery. - Children will be allowed to drink immediately following surgery.? If applicable, please bring a bottle or sippy cup to assist with drinking. Juice, water, soda, and popsicles are readily available.? For infants on formula, please bring formula the day of surgery.? Pacifiers are allowed. Take only the following medications with a SIP of water on the morning of surgery: DO NOT STOP ANY OF YOUR OTHER PRESCRIPTION MEDICATIONS PRIOR TO SURGERY EXCEPT THE FOLLOWING Hold all vitamins and supplements for 3 days per anesthesiologist. Medications to discontinue per physician Date to take last dose Please no make-up, nail stateless, hairspray, perfume, deodorant, or body powder the day of surgery.? No jewelry (including any body piercings) or valuables the day of surgery, leave them at home.? Please take a shower or bath the night before, or the morning of, surgery with an antibacterial soap.? Wear comfortable, loose fitting clothing.? Children are encouraged to wear pajamas. - Jewelry must be removed prior to entering the operating room.? Rings and piercings that are not removed may be cut off. - The hospital will not accept responsibility for valuables.? - Please leave all valuables, including medications, at home the day of surgery. If you are going home after surgery, a licensed superintendent drivers must drive you home.? - NO public transportation without another adult if you receive anesthesia. - We recommend that an adult stay with you for 24 hours following discharge. - We also recommend that you do not drive, make important decision, drink alcoholic beverages, or take any drugs that were not prescribed by your health care provider for at least 24 hours after your discharge time. For Pediatric surgeries, we recommend two adults accompany the child home. Follow any additional instructions given to you from your surgeon. Telephone instructions given to and asked if any additional questions and then verbalized understanding. Patient advised to call surgeon office or pre surgery nurse liaison [phone] if any additional questions.
--- NOTE | 2024-12-02 13:07 | PC.NURSE ---
Report to the Outpatient Waiting Room, entrance under the green pavilion located off [facility], at time __7 AM on date __12/06/24 . Planned Procedure Time: __9 AM .? Time changes happen often and if your time is changed the preop area will call you the afternoon before. - You and your visitor will be asked to self-screen and do not enter if you have any COVID symptoms. Please call surgeon if you need to reschedule. - A mask is optional within the hospital at this time. Patients may have clear liquids (water, carbonated beverages, clear teas, apple juice) until 3 hours prior to surgery ( 6 AM ) with a maximum of 20 ounces. - No food from midnight until time of surgery and no smoking, or chewing tobacco (or any form of nicotine). No chewing gum, candy or mints. Take only the following medications with a SIP of water on the morning of surgery: ___METOPROLOL, EYE DROPS DO NOT STOP ANY OF YOUR OTHER PRESCRIPTION MEDICATIONS PRIOR TO SURGERY EXCEPT THE FOLLOWING Hold all vitamins and supplements for 3 days per anesthesiologist.LAST DOSE 12/02/24 Medications to discontinue per physician NONE Please no make-up, nail armenian, hairspray, perfume, deodorant, or body powder the day of surgery.? No jewelry (including any body piercings) or valuables the day of surgery, leave them at home.? Please take a shower or bath the night before, or the morning of, surgery with an antibacterial soap.? Wear comfortable, loose fitting clothing.? Children are encouraged to wear pajamas. - Jewelry must be removed prior to entering the operating room.? Rings and piercings that are not removed may be cut off. - The hospital will not accept responsibility for valuables.? - Please leave all valuables, including medications, at home the day of surgery. If you are going home after surgery, a licensed independent driver must drive you home.? - NO public transportation without another adult if you receive anesthesia. - We recommend that an adult stay with you for 24 hours following discharge. - We also recommend that you do not drive, make important decision, drink alcoholic beverages, or take any drugs that were not prescribed by your health care provider for at least 24 hours after your discharge time. For Pediatric surgeries, we recommend two adults accompany the child home. Follow any additional instructions given to you from your surgeon. Telephone instructions given to __PATIENT and asked if any additional questions and then verbalized understanding. Patient advised to call surgeon office or pre surgery nurse liaison [phone] if any additional questions.
[2024-12-02 13:25] VITALS: BMI 31.7
--- NOTE | 2024-12-04 06:58 | P.HP_ITS ---
H&P: HPI History of Present Illness Date/Time: 12/04/24 06:58 Chief Complaint: Uterine fibroids and pelvic pain Narrative: This is an 79-year-old female with uterine fibroids complaining of pelvic pain and chronic discomfort. She said no evidence of bleeding and the fibroids have not grown however she continues to have rather severe pelvic pain. In light of these findings the patient opts to undergo robotic hysterectomy and bilateral salpingo-oophorectomy. She has been okayed by her primary care physician for surgery. Risks and benefits reviewed in great detail Review of Systems Review of Systems: All systems reviewed & are unremarkable except as noted in HPI and below PMFSH Past Medical History Medical History Gastroesophageal reflux disease Hyperlipidemia Arthritis Depression Wears glasses Hypertension Surgical History Surgical History History of cataract extraction with lens replacement History of total right knee replacement (12/16/21) History of myomectomy History of total left knee replacement (08/19/21) History of cholecystectomy (1988) History of tubal ligation (1969) Family History Family History Mother Arthritis Heart disease Open Heart Surgery @ 88y/p Father Hypertension Other Depression Social History Social History Social History: Surrogate medical decision maker: Mayelin Purdy, daughter. Code status: Full code 08/28/24 patient declined SDFL Smoking status: Never smoker Second hand tobacco smoke exposure: No Alcohol intake: current Alcohol use details: Perhaps 1 alcoholic beverage a month. Substance use: never Lack of Transportation: No Lack of Food: Never True Current Housing: I Have Housing Concerned About Future Housing: No Difficulty Paying Gas/Electric Bills: No Difficulty Paying for Meds: No Currently Unemployed: No Education: High School Diploma/GED Difficulty w/ Childcare or Family Care: No Living arrangements: alone Additional living arrangements comments: Lives in her own home in [place] with her 2 small dogs. in 2019. Occupation/Education: retired Spiritual care concerns: No Meds Home Medications and Allergies Home Medications ?Medication ?Instructions ?Recorded ?Confirmed ?Type cholecalciferol (vitamin D3) 50 50 mcg PO DAILY 03/17/21 12/02/24 History mcg (2,000 unit) capsule cranberry fruit 400 mg capsule 400 mg PO DAILY 03/17/21 12/02/24 History lactobacillus combination no.9 4 4,000 mmu cells PO DAILY 03/17/21 12/02/24 History billion cell capsule (Adult 50 Plus Probiotic) multivitamin 1 tablet PO DAILY 03/17/21 12/02/24 History ezetimibe 10 mg tablet 10 mg PO DAILY #90 tabs 03/05/24 12/02/24 Rx metoprolol succinate 100 mg 100 mg PO DAILY #90 tabs 08/14/24 12/02/24 Rx tablet,extended release 24 hr (Toprol XL) tazarotene 0.1 % topical cream 1 applic topical DAILY #30 grams 09/11/24 12/02/24 Rx losartan 100 1 tablet PO DAILY #90 tabs 11/12/24 12/02/24 Rx mg-hydrochlorothiazide 25 mg tablet omeprazole 20 mg capsule,delayed 20 mg PO DAILY #90 caps 11/15/24 12/02/24 Rx release ascorbic acid (vitamin C) 1,000 mg 1 g PO DAILY 12/02/24 12/02/24 History tablet (C-1000) timolol maleate 0.5 % eye gel 1 drp EACH EYE DAILY 12/02/24 12/02/24 History forming solution Allergies Allergy/AdvReac Type Severity Reaction Status Date / Time No Known Allergies Allergy Verified 12/02/24 13:06 Exam Const: General: cooperative, healthy appearing and comfortable Nutritional Appearance: overweight Orientation/consciousness: oriented to person, oriented to place and oriented to time Resp: Effort & Inspection: normal respiratory effort Cardio: Rate: regular rate Rhythm: regular rhythm Heart sounds: S1 normal heart sound present and S2 normal heart sound present GI: Inspection: normal to inspection : External Female Exam: normal external appearance Speculum Exam - Vagina: normal appearance of the vagina Speculum Exam - Cervix: normal appearance of the cervix Bimanual exam- vagina & uterus: enlarged and nodular Bimanual Exam- Adnexa, other: normal adnexae Assessment and Plan Assessment and plan (1) Uterine fibroid: Code(s): D25.9 - Leiomyoma of uterus, unspecified Status: Acute Plan Proceed with robotic total vaginal hysterectomy bilateral salpingo-oophorectomy
[2024-12-06] VITALS (14 sets, daily range): BP systolic 102–146; BP diastolic 48–83; PULSE 52–69; RESP 13–19; TEMP 36.2–37.4; O2SAT 94–100
--- OUTSIDE RECORDS SUMMARY | 2024-12-06 02:11 | XMS_ITS | Clinical Summary ---
Author Organization [facility] Alyse jackson Address [address] [place] [id number] Phone Care Team Providers Care Automotive Service Director Name Role Phone Unavailable Primary Care Provider [...] on file Legal Sex Female 8:33 AM [facility] Gender Identity Not on [...]
--- NOTE | 2024-12-06 06:30 | WPDHPUPDATE1 ---
History and Physical Update Update Date/Time: 12/06/24 06:30 History and Physical has been reviewed, including an updated exam of the patient. There are NO changes in the patient's condition. Risks, benefits, and alternatives have been discussed and questions answered. Patient agrees to proceed with procedure.
[2024-12-06] MEDS: LACTATED RINGERS 1,000 ML 30 ML IV CONT ×2 (07:30→11:33)
[2024-12-06] MEDS: ACETAMINOPHEN 500 MG TABLET 1000 MG PO ×3 (07:30→18:55)
[2024-12-06] MEDS: KETOROLAC 15 MG/ML VIAL (*BKC) IV PUSH (07:30)
--- NOTE | 2024-12-06 09:11 | P.PNAN_ITS ---
Anes - Initial Pre Proc Eval Procedure: Operation Date: 12/06/24 09:00 Proposed Procedures p Robotic Assisted Total Vaginal Hysterectomy with Bilateral Salpingo- oophorectomy - Pan Lu MD Date/Time: 12/06/24 09:11 Surgeon: Pan Lu MD Pre Op Diagnosis: Enlarge Uterus, Fibrods, Pelv pain Patient Data Age: 79 Gender: F Height: 1.5 m Weight: 75 kg Last Vital Signs Temp 36.8 C 12/06/24 07:30 Pulse 53 L 12/06/24 07:30 Resp 14 12/06/24 07:30 BP 146/68 H 12/06/24 07:30 Pulse Ox 100 12/06/24 07:30 O2 Del Method Room Air 12/06/24 07:30 Allergies Allergy/AdvReac Type Severity Reaction Status Date / Time No Known Allergies Allergy Verified 12/02/24 13:06 Home Medications ?Medication ?Instructions ?Recorded ?Confirmed ?Type cholecalciferol (vitamin D3) 50 50 mcg PO DAILY 03/17/21 12/02/24 History mcg (2,000 unit) capsule cranberry fruit 400 mg capsule 400 mg PO DAILY 03/17/21 12/02/24 History lactobacillus combination no.9 4 4,000 mmu cells PO DAILY 03/17/21 12/02/24 History billion cell capsule (Adult 50 Plus Probiotic) multivitamin 1 tablet PO DAILY 03/17/21 12/02/24 History ezetimibe 10 mg tablet 10 mg PO DAILY #90 tabs 03/05/24 12/02/24 Rx metoprolol succinate 100 mg 100 mg PO DAILY #90 tabs 08/14/24 12/02/24 Rx tablet,extended release 24 hr (Toprol XL) tazarotene 0.1 % topical cream 1 applic topical DAILY #30 grams 09/11/24 12/02/24 Rx losartan 100 1 tablet PO DAILY #90 tabs 11/12/24 12/02/24 Rx mg-hydrochlorothiazide 25 mg tablet omeprazole 20 mg capsule,delayed 20 mg PO DAILY #90 caps 11/15/24 12/02/24 Rx release ascorbic acid (vitamin C) 1,000 mg 1 g PO DAILY 12/02/24 12/02/24 History tablet (C-1000) timolol maleate 0.5 % eye gel 1 drp EACH EYE DAILY 12/02/24 12/02/24 History forming solution hydrocodone 5 mg-acetaminophen 325 1 tablet PO Q4H PRN pain #20 tabs 12/06/24 Rx mg tablet Patient hx anesthesia problems: post op nausea/vomiting Family hx anesthesia problems: none Results Review: All pre-operative results and documents have been reviewed as part of the pre- operative evaluation. FOR[facility]LY [facility] Past Medical History Medical History Gastroesophageal reflux disease Hyperlipidemia Arthritis Depression Wears glasses Hypertension Surgical History Surgical History History of cataract extraction with lens replacement History of total right knee replacement (12/16/21) History of myomectomy History of total left knee replacement (08/19/21) History of cholecystectomy (1988) History of tubal ligation (1969) Family History Family History Mother Arthritis Heart disease Open Heart Surgery @ 88y/p Father Hypertension Other Depression Social History Social History Social History: Surrogate medical decision maker: Mayelin Purdy, daughter. Code status: Full code 08/28/24 patient declined SDOH Smoking status: Never smoker Second hand tobacco smoke exposure: No Alcohol intake: current Alcohol use details: Perhaps 1 alcoholic beverage a month. Substance use: never Lack of Transportation: No Lack of Food: Never True Current Housing: I Have Housing Concerned About Future Housing: No Difficulty Paying Gas/Electric Bills: No Difficulty Paying for Meds: No Currently Unemployed: No Education: High School Diploma/GED Difficulty w/ Childcare or Family Care: No Living arrangements: alone Additional living arrangements comments: Lives in her own home in [place] with her 2 small dogs. in 2019. Occupation/Education: retired Spiritual care concerns: No Anes - Eval Final PreProcedure Day of Procedure 12/06/24 09:11 Patient weight: obese Heart: regular rate and rhythm Lungs: clear to auscultation Airway: Mallampati scale class II Neurological: alert and oriented Last oral intake: >/= 8 hours ASA classification: III Emergent: no Anesthetic plan: proceed Anesthesia type and monitoring: general ETT and standard monitoring Results Review: All pre-operative results and documents have been reviewed as part of the pre- operative evaluation. Informed Consent: The patient's anesthetic plan and its attendant risks and benefits were discussed with the patient/family/POA. Questions were solicited and answers provided to the satisfaction of the patient/family/POA.
[2024-12-06] MEDS: ceFAZolin 2 GM in SODIUM CHLORIDE 0.9% IV 50 ML 100 ML IVPB (09:29)
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
--- NOTE | 2024-12-06 11:18 | S_PTH ---
PATIENT: Mara Romero LOC: [facility] U#:[id number] AGE/SX: 79/F ROOM: RE12/06/[address]: Pan Lu MD : 1945 BED: DIS: 12/07/2024 SPEC #: [id number] RECD: 12/06/24 13:00 STATUS: ADAN REQ #: [id number] REID: 12/06/24 11:[address]: Pan Bush DEPT: [facility] [place] Surgical RECD BY: Suzanne Lu ENTERED: 12/06/24 13:00 SP TYPE: Surgical OTHR DR: Heidi Draper APRN Tissues: A - Uterus Procedures: Hematoxylin and Eosin Stain Gross and Microscopic Level 5
--- NOTE | 2024-12-06 11:26 | PM.DS ---
DS: Admitting Diagnosis Discharge Date 12/07/24 <Isa Lubin MD - Last Filed: 12/07/24 10:37> Admitting Diagnosis Uterine fibroids <Pan Lu MD - Last Filed: 12/06/24 11:28> DS: Discharge Diagnosis Discharge Diagnosis (1) Ovarian mass, right: Code(s): N83.8 - Other noninflammatory disorders of ovary, fallopian tube and broad ligament <Pan Lu MD - Last Filed: 12/06/24 11:28> Status: Acute <Pan Lu MD - Last Filed: 12/06/24 11:28> DS: Summary Hospital Course Reason for hospitalization: Patient was admitted on 12/06/2024 for robotic hysterectomy bilateral salpingo-oophorectomy secondary to what was suspected to be a uterine fibroid. The upon the the procedure she underwent robotic supracervical hysterectomy and by lateral salpingectomy go oophorectomy with a large right ovarian mass noted which appeared to be a fibroadenoma this required an open failed a small Pfannenstiel incision. <Pan Lu MD - Last Filed: 12/06/24 11:28> Hospital Course: Patient's hospital course unremarkable. She remained afebrile. She was up, voiding without difficulty, eating regular diet, ambulating, generally without complaints. <Pan Lu MD - Last Filed: 12/06/24 11:28> Time Spent with Patient Time attestation: Total time spent providing and/or coordinating discharge services: <Pan Lu MD - Last Filed: 12/06/24 11:28> Exam Const: General: cooperative, healthy appearing and comfortable <Pan Lu MD - Last Filed: 12/06/24 11:28> Nutritional Appearance: average body habitus <Pan Lu MD - Last Filed: 12/06/24 11:28> HENMT: Head: normal to inspection <Pan Lu MD - Last Filed: 12/06/24 11:28> Resp: Effort & Inspection: normal respiratory effort <Pan Lu MD - Last Filed: 12/06/24 11:28> Cardio: Rate: regular rate <Pan Lu MD - Last Filed: 12/06/24 11:28> Rhythm: regular rhythm <Pan Lu MD - Last Filed: 12/06/24 11:28> Heart sounds: S1 normal heart sound present and S2 normal heart sound present <Pan Lu MD - Last Filed: 12/06/24 11:28> GI: Inspection: normal to inspection and incision (Wounds are clean dry and intact) <Pan Lu MD - Last Filed: 12/06/24 11:28> DS: Data Data Completed and Pending Pending studies at discharge: Pending at discharge 12/06/24 11:18 Surgical [PTH] Routine <Pan Lu MD - Last Filed: 12/06/24 11:28> Discharge Plan Discharge Patient Disposition: Home <Pan Lu MD - Last Filed: 12/06/24 11:28> Patient Language: Kyrgyz <Pan Lu MD - Last Filed: 12/06/24 11:28> Stand Alone Forms: General Discharge Instructions <aPn Lu MD - Last Filed: 12/06/24 11:28> Follow-up/Referrals: Pan Bush MD [Physician] - <Pan Lu MD - Last Filed: 12/06/24 11:28> Discharge Medications: New hydrocodone-acetaminophen 5-325 mg tablet 1 tablet PO Q4H PRN (Reason: pain) Qty: 20 0RF No Action multivitamin Tablet 1 tablet PO DAILY Adult 50 Plus Probiotic 4 billion cell capsule 4,000 mmu cells PO DAILY Rx Instructions: administer with a meal cranberry fruit 400 mg capsule 400 mg PO DAILY Rx Instructions: administer with a meal cholecalciferol (vitamin D3) 50 mcg (2,000 unit) capsule 50 mcg PO DAILY ezetimibe 10 mg tablet 10 mg PO DAILY Qty: 90 1RF timolol maleate 0.5 % gel forming solution 1 drp EACH EYE DAILY ascorbic acid (vitamin C) [C-1000] 1,000 mg tablet 1 g PO DAILY metoprolol succinate [Toprol XL] 100 mg tablet extended release 24 hr 100 mg PO DAILY Qty: 90 1RF tazarotene 0.1 % cream 1 applic topical DAILY Qty: 30 0RF losartan-hydrochlorothiazide 100-25 mg tablet 1 tablet PO DAILY Qty: 90 1RF omeprazole 20 mg capsule,delayed release(DR/EC) 20 mg PO DAILY Qty: 90 1RF <Pan Lu MD - Last Filed: 12/06/24 11:28>
[2024-12-06] MEDS: fentaNYL CITRATE INJ (*CRX) 100 MCG/2 ML VIAL 25 MCG IV PUSH (12:01)
--- NOTE | 2024-12-06 12:53 | OBPPTRN ---
Patient transferred to post room #276 via stretcher. Oriented to unit, room, information board, rooming in, admission packet and security measures. Patient verbalizes understanding.
[2024-12-06] MEDS: SIMETHICONE 80 MG TAB.CHEW PO ×2 (13:30→17:34)
[2024-12-06] MEDS: DEXTROSE 5%/LACTATED RINGERS 1,000 ML 125 ML IV CONT (13:30)
[2024-12-06] MEDS: KETOROLAC 30 MG/ML VIAL (*BKC) IV PUSH ×2 (13:55→18:55)
[2024-12-06] MEDS: DOCUSATE SODIUM 100 MG CAPSULE PO (17:34)
[2024-12-06] MEDS: DEXTROSE 5%/0.45% SOD CHL 500 ML 999 ML IV CONT (21:09)
[2024-12-06] MEDS: FUROSEMIDE INJ 40 MG/4 ML VIAL 20 MG IV PUSH (21:09)
[2024-12-06] MEDS: LACTATED RINGERS 1,000 ML 125 ML IV CONT (21:36)
[2024-12-07] MEDS: KETOROLAC 30 MG/ML VIAL (*BKC) IV PUSH (00:56)
[2024-12-07] MEDS: ACETAMINOPHEN 500 MG TABLET 1000 MG PO ×2 (00:56→07:56)
[2024-12-07 04:11] VITALS: BP 112/54; PULSE 57; RESP 17; TEMP 36.5; O2SAT 97
[2024-12-07 05:11] LABS: Hematocrit 32.8 % (37.0-47.0); Hemoglobin 10.7 g/dL (12.0-15.0); Immature Granulocyte Percent A 0.3 % (0-0.5); Lymphocytes Absolute Auto 1.55 K/mm3 (0.9-3.2); Mean Corpuscular HGB Conc 32.6 g/dl (32-36); Mean Corpuscular Hemoglobin 30.7 pg (26-34); Mean Corpuscular Volume 94.3 fl (80-100); Nucleated Red Blood Cells Absolute Auto 0.000 K/mm3 (0.0-0.012); Nucleated Red Blood Cells Perc 0.0 % (0.0-0.2); Platelet Count Result 240 k/mm3 (150-375); Red Blood Count 3.48 M/mm3 (4.2-5.4); White Blood Count 11.8 K/mm3 (4.5-10.0)
[2024-12-07] MEDS: IBUPROFEN 600 MG TABLET PO (07:56)
[2024-12-07] MEDS: DOCUSATE SODIUM 100 MG CAPSULE PO (07:56)
[2024-12-07] MEDS: SIMETHICONE 80 MG TAB.CHEW PO (07:57)
[2024-12-07] MEDS: ENOXAPARIN 40 MG/0.4 ML SYRINGE SUB-Q (08:29)
[2024-12-07 09:15] VITALS: BP 115/43; PULSE 71; RESP 18; TEMP 36.9; O2SAT 98
--- NOTE | 2024-12-07 10:33 | P.PNOB_ITS ---
CLINICAL OB - A/P Postoperative Procedures: Procedures Operation Date: 12/06/24 09:00 Actual Procedure Side Surgeon p Robotic Assisted Total Vaginal Hysterectomy with Bilateral Salpingo- oophorectomy Bilateral Pan Lu MD Postoperative day: 1 Postoperative status: doing well Postoperative plan: routine post-op care and discharge Time Spent With Patient Time: Total time spent is greater than 50% in coordination of care (as documented) at patient's floor/unit and/or counseling patient: Time with patient: less than 15 minutes CLINICAL OB- PN:Subj Post-Op Subjective Date/time seen: 12/07/24 10:33 Subjective: patient has no complaints, pain is well controlled and patient is tolerating oral intake Exam 2 Narrative: incisions c/d/i abdomen soft, nt, nd CLINICAL OB - PN: Obj Data Vital Signs Vital Signs: Vital Signs - 24 hr 12/06/24 11:33 12/06/24 11:45 12/06/24 12:00 Temperature 97.9 F Pulse Rate 69 63 65 Respiratory Rate 13 18 19 Blood Pressure 133/59 L 124/61 131/83 Pulse Oximetry 100 100 95 Oxygen Delivery Simple Face Mask Simple Face Mask Nasal Cannula Oxygen Flow Rate 8 8 2 12/06/24 12:15 12/06/24 12:30 12/06/24 12:45 Temperature Pulse Rate 61 61 56 L Respiratory Rate 19 18 18 Blood Pressure 122/56 L 116/65 118/63 Pulse Oximetry 94 94 97 Oxygen Delivery Nasal Cannula Nasal Cannula Nasal Cannula Oxygen Flow Rate 2 2 2 12/06/24 12:52 12/06/24 13:00 12/06/24 13:30 Temperature 97.2 F L 98.9 F Pulse Rate 57 L 52 L Respiratory Rate 17 16 Blood Pressure 127/66 131/49 L Pulse Oximetry 96 97 99 Oxygen Delivery Nasal Cannula Nasal Cannula Oxygen Flow Rate 2 1 12/06/24 17:00 12/06/24 17:00 12/06/24 19:30 Temperature 98.8 F Pulse Rate 58 L 58 L Respiratory Rate 14 14 Blood Pressure 102/55 L Pulse Oximetry 97 95 Oxygen Delivery Room Air Oxygen Flow Rate 12/06/24 19:36 12/06/24 20:47 12/06/24 23:32 Temperature 99.4 F 98.4 F Pulse Rate 57 L 58 L Respiratory Rate 17 17 Blood Pressure 112/48 L 115/54 L 106/55 L Pulse Oximetry 95 96 Oxygen Delivery Oxygen Flow Rate 12/07/24 00:57 12/07/24 03:59 12/07/24 04:11 Temperature 97.7 F Pulse Rate 57 L Respiratory Rate 17 Blood Pressure 112/54 L Pulse Oximetry 97 Oxygen Delivery Room Air Room Air Oxygen Flow Rate 12/07/24 09:15 12/07/24 09:15 Temperature 98.4 F Pulse Rate 71 71 Respiratory Rate 18 18 Blood Pressure 115/43 L Pulse Oximetry 98 98 Oxygen Delivery Room Air Oxygen Flow Rate Intake/Output Intake/Output: Intake & Output 12/04/24 12/05/24 12/06/24 12/07/24 23:59 23:59 23:59 23:59 Intake Total 100 240 Output Total 550 400 Balance -450 -160 Meds/Results Medications: Active Medications Generic Name Dose Route Start Last Admin Trade Name Freq PRN Reason Stop Dose Admin Acetaminophen 1,000 mg 12/06/24 12:54 12/07/24 07:56 Acetaminophen 500 Mg Tablet PO 1,000 mg Q6HR SOHAM Administration Docusate Sodium 100 mg 12/06/24 17:00 12/07/24 07:56 Docusate Sodium 100 Mg Capsule PO 100 mg BID SOAHM Administration Enoxaparin Sodium 40 mg 12/07/24 09:00 12/07/24 08:29 Enoxaparin 40 Mg/0.4 Ml Syringe SUB-Q 40 mg DAILY SOHAM Administration Fentanyl Citrate 25 mcg 12/06/24 11:44 12/06/24 12:01 Fentanyl Citrate Inj (*Crx) 100 Mcg/2 Ml Vial IV PUSH 25 mcg Q2M PRN Administration Pain Lactated Ringer's 1,000 mls @ 30 mls/hr 12/06/24 11:45 12/06/24 21:36 Lr - Lactated Ringers Iv IV CONT 125 mls/hr .Q24H SOHAM Administration Ibuprofen 600 mg 12/07/24 06:00 12/07/24 07:56 Ibuprofen 600 Mg Tablet PO 600 mg Q6HR SOHAM Administration Naloxone HCl 0.1 mg 12/06/24 12:54 Naloxone Hcl 0.4 Mg/Ml Vial IV PUSH Q2M PRN Respiratory rate less than 10 Ondansetron HCl 4 mg 12/06/24 11:44 Ondansetron Inj 4 Mg/2 Ml Vial IV PUSH ONCE PRN Nausea Ondansetron HCl 4 mg 12/06/24 12:54 Ondansetron Inj 4 Mg/2 Ml Vial IV PUSH Q6H PRN Nausea And Vomiting Oxycodone HCl 5 mg 12/06/24 12:54 Oxycodone Hcl (*Crx) 5 Mg Tab Ir PO Q4H PRN Pain Rated 4-6 Oxycodone HCl 10 mg 12/06/24 12:54 Oxycodone Hcl (*Crx) 5 Mg Tab Ir PO Q6H PRN Pain Rated 7-10 Simethicone 80 mg 12/06/24 12:54 12/07/24 07:57 Simethicone 80 Mg Tab.Chew PO 80 mg TIDWM SOHAM Administration Labs 12/07/24 03:42 Labs: Laboratory Results - last 24 hr 12/07/24 03:42 WBC 11.8 H RBC 3.48 L Hgb 10.7 L Hct 32.8 L MCV 94.3 MCH 30.7 MCHC 32.6 RDW 12.6 Plt Count 240 MPV 9.8 Immature Gran % (Auto) 0.3 Neut % (Auto) 78.0 H Lymph % (Auto) 13.1 L [place] % (Auto) 8.3 Eos % (Auto) 0.1 Baso % (Auto) 0.2 Lymph # (Auto) 1.55 [place] # (Auto) 1.0 H Eos # (Auto) 0.0 Baso # (Auto) 0.0 Abs Immat Gran (auto) 0.04 H Absolute Neuts (auto) 9.2 H Absolute Nucleated RBC 0.000 Nucleated RBC % 0.0
--- NOTE | 2024-12-07 11:26 | P.PNAN_ITS ---
Anes - Prog Note Post-Op Date/Time: 12/07/24 11:26 Cardiovascular status: normal Respiratory status: normal Airway patency: baseline Mental status: baseline Post-Op hydration status: normal Vital Signs: Last Vital Signs Temp 98.4 F 12/07/24 09:15 Pulse 71 12/07/24 09:15 Resp 18 12/07/24 09:15 BP 115/43 L 12/07/24 09:15 Pulse Ox 98 12/07/24 09:15 O2 Del Method Room Air 12/07/24 09:15 O2 Flow Rate 1 12/06/24 13:30 Pain Score (VAS): 2 I/O: Intake & Output 12/06/24 12/07/24 12/07/24 23:59 07:59 15:59 Intake Total 240 Output Total 550 400 Balance -550 -400 240 Laboratory Tests 12/07/24 03:42 12/07/24 03:42 WBC 11.8 H RBC 3.48 L Hgb 10.7 L Hct 32.8 L MCV 94.3 MCH 30.7 MCHC 32.6 RDW 12.6 Plt Count 240 MPV 9.8 Immature Gran % (Auto) 0.3 Neut % (Auto) 78.0 H Lymph % (Auto) 13.1 L [place] % (Auto) 8.3 Eos % (Auto) 0.1 Baso % (Auto) 0.2 Lymph # (Auto) 1.55 [place] # (Auto) 1.0 H Eos # (Auto) 0.0 Baso # (Auto) 0.0 Abs Immat Gran (auto) 0.04 H Absolute Neuts (auto) 9.2 H Absolute Nucleated RBC 0.000 Nucleated RBC % 0.0 Post-procedural complaints: none Patient Feedback: Patient satisfied with anesthetic care. Other Findings: pt having difficulty voiding
== END 2024-12-07 14:00 | disposition home or self-care (01) ==
LOC: ANHSURGERY 06:42 → ANHOB2 12:59
PROVIDERS: PCP Nurse Practitioner Family; Visit Provider Obstetrics & Gynecology
PROC: (CPT 58542; principal; 2024-12-06 09:00)
DX: D25.1 Intramural leiomyoma of uterus (principal); N84.0 Polyp of corpus uteri; N83.312 Acquired atrophy of left ovary; N83.311 Acquired atrophy of right ovary; E78.5 Hyperlipidemia, unspecified; I10 Essential (primary) hypertension; K21.9 Gastro-esophageal reflux disease without esophagitis; F32.A Depression, unspecified; M19.90 Unspecified osteoarthritis, unspecified site; E66.9 Obesity, unspecified; Z68.33 Body mass index [BMI] 33.0-33.9, adult; Z79.891 Long term (current) use of opiate analgesic; Z98.890 Other specified postprocedural states; Z90.49 Acquired absence of other specified parts of digestive tract; Z98.51 Tubal ligation status; Z82.49 Family history of ischemic heart disease and other diseases of the circulatory system
CPT/HCPCS: 58542; S2900; 36415; 85025; 88307; 99199; J0690; A9270; J1100; J1650; J1885; J1938; J2003; J2405; J2704; J3010; J7120; J7121